=== PATIENT | female | born 1990 | race Caucasian/White ===

== ENCOUNTER → 2017-01-29 | Outpatient (CLI) | payer BC, OTHER ==
[~2017-01-29] MED LIST: BCPILLS PO; GADAVIST IV PRN
--- NOTE | 2017-01-29 14:06 | DIAGNOSTIC IMAGING REPORT ---
Brain MRI WITH AND WITHOUT CONTRAST HISTORY: Demyelinating disorder MS TECHNIQUE: Multiplanar multisequence MRI of the brain was performed both before and after the intravenous administration of contrast. COMPARISON STUDY: 08/07/2016 FINDINGS: There are no areas of restricted diffusion to suggest acute infarction. The midline structures are intact. The paranasal sinuses are clear. The mastoid air cells are clear. The ventricles and sulci are within normal limits for age. There is no mass, hematoma, midline shift. The major vascular flow-voids at the skull base are well maintained. Postcontrast sequences show no areas of abnormal enhancement. There are several very small punctate foci of increased signal within the frontal regions bilaterally. These are unchanged compared to the prior study. IMPRESSION: No acute intracranial abnormality. Several faint nonspecific foci of increased signal within the frontal lobes unchanged compared to the prior exam. Electronically signed by: Erick Tomas M.D. 01/29/2017 2:04 PM Dictated Date/Time: 01/29/2017 1:54 PM
--- NOTE | 2017-01-29 14:37 | DIAGNOSTIC IMAGING REPORT ---
MRI OF THE CERVICAL SPINE COMBO CLINICAL HISTORY: Multiple sclerosis. COMPARISON STUDY: MRI of the cervical spine dated 08/07/2016 and 07/27/2014. TECHNIQUE: MRI of the cervical spine is performed utilizing various T1 and T2 sequences in the axial and sagittal planes. Contrast enhanced sequences were acquired following the IV administration of 6 cc of Gadavist. FINDINGS: CERVICAL SPINE: Vertebral body height and alignment are maintained throughout the cervical spine. Normal marrow signal intensity is preserved throughout the visualized bony structures. There is straightening of cervical lordosis with mild reversal centered at C5. The atlantodental articulation appears preserved. The spinous processes are intact. No destructive bony lesion is seen. INTERVERTEBRAL DISCS: Normal in height and signal intensity. SPINAL CORD: Again seen is a T2 hyperintense lesion in the posterior lower cervical cord at the level of C6-C7. This measures up to 6 mm in craniocaudal length, and is unchanged dating back to 07/27/2014. This does not show is contrast enhancement. A new lesion is suspected within the left aspect of the cord at the level of C6-C7 on sagittal STIR image #10. This measures 5 mm. This was not clearly seen previously and there is likely subtle postcontrast enhancement within this lesion. C2-C3: Unremarkable. C3-C4: Unremarkable. C4-C5: There is a tiny posterior disc osteophyte complex of no consequence. The neural foramina are patent. C5-C6: A tiny posterior disc osteophyte complex is of no consequence. The neural foramina are patent. C6-C7: Unremarkable. C7-T1: Unremarkable. SOFT TISSUES: The prevertebral and paraspinous soft tissues are within normal limits. BRAIN PARENCHYMA: The partially visualized brain parenchyma at the skull base is grossly normal. IMPRESSION: 1. There is unchanged appearance of a 6 mm T2 hyperintense lesion within the posterior cervical cord at C6-C7 as compared to prior studies. 2. Suspect a new 5 mm lesion within the left aspect of the cervical cord at C6-C7. This was not clearly seen previously and there is likely subtle postcontrast enhancement within this lesion. 3. There is no disc herniation, central canal stenosis, or neuroforaminal narrowing seen throughout the cervical spine. Electronically signed by: Juan Carlos Gamino M.D. 01/29/2017 2:36 PM Dictated Date/Time: 01/29/2017 2:14 PM
[2017-01-29 16:44] LABS: BASO % 0.4 %; BASO ABS # 0.04 K/uL (0-0.2); COMPLETE YES; EOS % 0.8 %; HEMATOCRIT 37.9 % (37-47); IG% 0.4 %; MEAN CELL VOLUME 89.6 fL (80-100); MEAN CORPUSCULAR HEMOGLOBIN 28.6 pg (25-34); MEAN CORPUSCULAR HGB CONC 31.9 g/dl (32-36); MEAN PLATELET VOLUME 10.4 fL (7.4-10.4); MONO % 5.9 %; NEUT % 66.5 %; PLATELET COUNT 362 K/uL (130-400); RED BLOOD COUNT 4.23 M/uL (4.2-5.4); WHITE BLOOD COUNT 10.01 K/uL (4.8-10.8)
[2017-01-29 17:45] LABS: ALT/SGPT 21 U/L (12-78); BLOOD UREA NITROGEN 11 mg/dl (7-18); BUN/CREATININE RATIO 15.9 (10-20); CALCIUM 8.7 mg/dl (8.5-10.1); CARBON DIOXIDE 25 mmol/L (21-32); CHLORIDE 108 mmol/L (98-107); CREATININE 0.66 mg/dl (0.60-1.20); GLUCOSE 84 mg/dl (70-99); POTASSIUM 3.7 mmol/L (3.5-5.1); SODIUM 141 mmol/L (136-145)
[2017-01-29 17:47] LABS: ALB/GLOB RATIO 0.8 (0.9-2); ALKALINE PHOSPHATASE 50 U/L (45-117); AST/SGOT 13 U/L (15-37)
[2017-02-05 01:44] LABS: JCV ANTIBODY POSITIVE; VARICELLA ZOS VIR IGM AB <=0.90 (<=0.90)
== END | disposition home or self-care (01) ==
LOC: C.MRIBC 11:55
PROVIDERS: ATTEND Psychiatry & Neurology Neurology
DX: G35 Multiple sclerosis (principal)

== ENCOUNTER → 2017-03-30 | Outpatient (CLI) | payer BC, OTHER ==
[~2017-03-30] MED LIST changes: -GADAVIST IV PRN
== END | disposition home or self-care (01) ==
LOC: C.CPL 16:35
PROVIDERS: ATTEND Psychiatry & Neurology Neurology
DX: G35 Multiple sclerosis (principal)

== ENCOUNTER → 2017-07-28 | Outpatient (CLI) | payer BC, OTHER ==
[~2017-07-28] MED LIST changes: +GADAVIST IV PRN
--- NOTE | 2017-07-28 10:33 | DIAGNOSTIC IMAGING REPORT ---
MRI CERVICAL SPINE COMBO CLINICAL HISTORY: Multiple sclerosis TECHNIQUE: Sagittal and axial T1, T2 and STIR images were obtained. Imaging was obtained before and after the administration of 6 cc of intravenous Gadavist. COMPARISON STUDY: January 29, 2017 There are no suspicious areas of marrow replacement. There is a 6.6 mm focus of increased T2 signal within the posterior cervical cord at the C6-7 level. There is no evidence for post gadolinium enhancement. C2-3: There is no evidence of disc bulge or focal herniation. There is no spinal or foraminal stenosis. C3-4: There is no evidence of disc bulge or focal herniation. There is no spinal or foraminal stenosis. C4-5: There are no disc bulges or focal herniations. There is no spinal or foraminal stenosis. C5-6 :There is a mild circumferential disc bulge. There is no significant spinal or foraminal stenosis C6-7: There is no evidence of disc bulge or focal herniation. There is no evidence of spinal or foraminal stenosis. C7-T1: There is no evidence of disc bulge or focal herniation. There is no evidence of spinal or foraminal stenosis. IMPRESSION: 1. Stable (x6 years) 6.6 mm focus of increased T2 signal within the posterior cervical cord at the C6-7 level. No evidence of pathologic enhancement. No additional lesions identified. 2. Minor C5-6 disc bulge. No evidence of spinal or foraminal stenosis. Electronically signed by: Sotero Martin M.D. 07/28/2017 10:31 AM Dictated Date/Time: 07/28/2017 10:27 AM
--- NOTE | 2017-07-28 11:25 | DIAGNOSTIC IMAGING REPORT ---
BRAIN COMBO FOR MS CLINICAL HISTORY: Multiple sclerosis. COMPARISON STUDY: MRI of the brain January 29, 2017. TECHNIQUE: Utilizing a 1.5 Yisel magnet, multiplanar, multiecho imaging of the brain was performed pre and postcontrast administration according to the multiple sclerosis protocol. Injection of 6 cc of Gadavist IV was uneventful. FINDINGS: There are no areas of restricted diffusion. No acute intracranial hemorrhage, midline shift or mass effect is present. Brain volume is normal. Ventricular system is normal. Basilar cisterns are patent. There are no extra axial collections. Flow-voids for the major intracranial vessels are present. A few small linear foci of subcortical white matter T2 hyperintensity within the right frontal lobe are unchanged since earlier exams dating back to September 11, 2011. No new areas of signal abnormality are present. There is no parenchymal enhancement to suggest active demyelination. Orbits are unremarkable. Calvarial signal is maintained. Flow-voids for the major intracranial vessels are present. IMPRESSION: 1. No change in a few small subcortical white matter T2 hyperintense foci since earlier exams dating back to September 11, 2011. No new areas of signal abnormality. No evidence for active demyelination. 2. No acute intracranial findings. Electronically signed by: Chris Rojas M.D. 07/28/2017 11:23 AM Dictated Date/Time: 07/28/2017 10:57 AM
== END | disposition home or self-care (01) ==
LOC: C.MRIBC 08:40
PROVIDERS: ATTEND Psychiatry & Neurology Neurology
DX: G35 Multiple sclerosis (principal)

== ENCOUNTER → 2017-09-02 | Outpatient (CLI) | payer BC, OTHER ==
[~2017-09-02] MED LIST changes: -GADAVIST IV PRN
[2017-09-02 16:41] LABS: BASO % 0.1 %; BASO ABS # 0.01 K/uL (0-0.2); EOS % 0.6 %; EOS ABS # 0.04 K/uL (0-0.5); HEMATOCRIT 38.9 % (37-47); HEMOGLOBIN 12.8 g/dL (12.0-16.0); IG# 0.06 K/uL (0.00-0.02); LYMPH % 5.1 %; LYMPH ABS # 0.36 K/uL (1.2-3.4); MEAN CORPUSCULAR HEMOGLOBIN 29.6 pg (25-34); MEAN CORPUSCULAR HGB CONC 32.9 g/dl (32-36); MEAN PLATELET VOLUME 10.5 fL (7.4-10.4); MONO % 6.8 %; MONO ABS # 0.48 K/uL (0.11-0.59); NEUT % 86.6 %; NEUT ABS # 6.13 K/uL (1.4-6.5); PLATELET COUNT 281 K/uL (130-400); RED CELL DISTRIBUTION WIDTH CV 13.4 % (11.5-14.5); RED CELL DISTRIBUTION WIDTH SD 44.6 fL (36.4-46.3); WHITE BLOOD COUNT 7.08 K/uL (4.8-10.8)
[2017-09-02 17:06] LABS: ALBUMIN 3.3 gm/dl (3.4-5.0); ALT/SGPT 26 U/L (12-78); AST/SGOT 14 U/L (15-37); BLOOD UREA NITROGEN 14 mg/dl (7-18); CALCIUM 8.8 mg/dl (8.5-10.1); CARBON DIOXIDE 25 mmol/L (21-32); CREATININE 0.67 mg/dl (0.60-1.20); GLUCOSE 111 mg/dl (70-99); POTASSIUM 3.8 mmol/L (3.5-5.1); SODIUM 137 mmol/L (136-145)
[2017-09-02 17:09] LABS: ALKALINE PHOSPHATASE 44 U/L (45-117); TOTAL PROTEIN 7.3 gm/dl (6.4-8.2)
== END | disposition home health service (06) ==
LOC: C.LAB 16:20
PROVIDERS: ATTEND Psychiatry & Neurology Neurology
DX: G35 Multiple sclerosis (principal)

== ENCOUNTER 2020-08-31 08:59 | Inpatient (IN) ==
[2020-08-31] MEDS ORDERED: SODIUM CHLORIDE 0.9% 500 ML IV STA (09:17)
[2020-08-31] MEDS ORDERED: DEXAMETHASONE SOD INJ 10 MG/ML VIAL IV ONE (09:17)
--- NOTE | 2020-08-31 09:28 | Emergency Department Note ---
Impression & Plan Multifocal pneumonia, COVID-19 virus infection, Sepsis ED Provider Note CHIEF COMPLAINT: Shortness of breath, + COVID-19 HISTORY OF PRESENTING ILLNESS: This is a 30-year-old female with past medical history significant for multiple sclerosis who presents to the emergency department by private vehicle with complaint of increasing shortness of breath over the past few days. Patient states that she tested positive for COVID-19 on 08/15, she initially felt better after being treated with some steroids, but started to feel worse again about 4 to 5 days ago. She was seen in the emergency department on 08/28 at which time they did recommend possible admission, however the patient requested to go home and she was felt stable to do so at that time. She was started on azithromycin, cefdinir, prednisone, and was given an albuterol inhaler. She states this morning she was feeling more short of breath when she woke up and she checked her pulse ox and it was 87%. She also notes continued persistent fevers ranging 102-103, she last took Motrin around midnight and Tylenol around 6:30 AM today. She denies chest pain, but notes discomfort in her chest and tightness with coughing. She denies any hemoptysis. She denies any syncope. She denies abdominal pain or back pain. She states t hat she has been using the albuterol inhaler, but this has not really helped her symptoms. REVIEW OF SYSTEMS: A complete 10 point review of systems was reviewed with the patient with pertinent positives and negatives as per history of present illness. All else were negative. PAST MEDICAL HISTORY: Multiple sclerosis SOCIAL HISTORY: Lives at home, she is a former smoker ALLERGIES: Reviewed in chart and with the patient PHYSICAL EXAM: CONSTITUTIONAL: Pleasant and cooperative. Appears ill and uncomfortable, dehydrated. HEENT: Normocephalic, atraumatic. PERRL, EOMI. Pharynx normal. Tacky mucous membranes. NECK: Supple, full active range of motion without discomfort. RESPIRATORY: Coarse rhonchi bilaterally, no wheezing or stridor. Mildly labored breathing with tachypnea and accessory muscle use. Frequent coughing spells. Equal expansion bilaterally. CARDIOVASCULAR: Tachycardic rate, regular rhythm with no murmurs, rubs or gallops. Normal peripheral perfusion. No edema. GASTROINTESTINAL: Soft, nontender, nondistended. No palpable masses or HSM. Bowel sounds present in all quadrants. MUSCULOSKELETAL: Full range of motion of all joints without discomfort. INTEGUMENTARY: No rash or other significant dermatologic conditions noted. NEUROLOGIC: Alert and oriented X 4 with normal affect. Normal strength and sensation in all 4 extremities. Normal speech. Normal gait observed. ED COURSE AND MEDICAL DECISION MAKING: CC: Patient presenting with complaint of shortness of breath, + COVID-19 DIFFERENTIAL DIAGNOSIS: Includes, but not limited to COVID-19 pneumonia, orchitis, bacterial pneumonia, sepsis/bacteremia, hypoxia, pulmonary embolism, pneumothorax, pleural effusion, pulmonary edema, among others. INTERPRETATION OF LABS: Leukocytosis with left shift, no anemia, normal platelets, no significant electrolyte abnormalities, normal renal function, normal liver enzymes. Coagulation factors within normal limits. Procalcitonin is not significantly elevated. Lactate is slightly elevated. Serum negative. Urinalysis negative. MRSA nasal screen negative. IMAGING: XR chest 1V portable HISTORY: 30 years-old Female Dyspnea, + COVID acute shortness of breath. COVID Positive. COMPARISON: Chest radiograph 08/28/2020 TECHNIQUE: Portable AP view of the chest FINDINGS: Cardiac silhouette is normal in size. No pneumothorax. Progressively worsened bilateral airspace opacities. No pleural effusion. Bones appear grossly intact. IMPRESSION: Progressively worsened bilateral airspace opacities compatible with multifocal pneumonia. ----- CT angio chest PE protocol CT DOSE: 297.31 mGy.cm HISTORY: 30 years-old Female with Dyspnea, + covid, OCP. Acute shortness of breath. COVID Positive. TECHNIQUE: Multiple CTA images of the chest were obtained after the intravenous administration of 120 ml Optiray 320. Coronal and sagittal MIPS were obtained from the axial data set and were submitted for review. All measurements were obtained according to NASCET criteria. A dose lowering technique was utilized adhering to the principles of ALARA. COMPARISON: Chest radiograph of same day and also 08/28/2020 FINDINGS: CTA: The heart is normal in size without pericardial effusion. There is no thoracic aortic aneurysm or dissection. Patency of the imaged great vessels. The pulmonary arterial tree is opacified to the level of the subsegmental branches and demonstrates no filling defects to suggest thromboembolic disease. CT CHEST: Unremarkable thyroid. Mild residual thymic tissue of the anterior mediastinum. Prominent mediastinal and hilar lymph nodes measuring up to 8-9 mm are likely reactive. Small pleural effusions. No pneumothorax. Low and patchy multilobar distribution of bilateral airspace opacities are noted, progressively worsened from 08/29/2020. Intermixed groundglass densities of the lung bases. Central airways are patent. No acute process of the imaged upper abdomen. The breast parenchyma and soft tissues appear unremarkable. Bones appear intact. IMPRESSION: 1. No pulmonary emboli. 2. Extensive bilateral alveolar opacities have progressively worsened from 08/28/2020 compatible with multifocal pneumonia. 3. Small pleural effusions. EKG: Shows sinus tachycardia with rate of 111 bpm, normal intervals, no ST elevation or depression, no ectopy, no significant change when compared to previous EKG from 08/28/2020 by my interpretation. MEDICATION RECONCILIATION: I attest that I have personally reviewed the patient's current medication list. INITIAL VITAL SIGNS REVIEW: I reviewed the patient's initial vital signs and interpret them as follows: T: Afebrile; BP: Normotensive; HR: Tachycardic; RR: Within normal limits; Pulse Ox: Within normal limits on room air. MDM SUMMARY: Patient was evaluated at bedside, history and physical exam performed. Patient was evaluated under full airborne and contact precautions. Patient is alert and oriented, no acute distress, resting calmly in stretcher. She is ill-appearing, but in no acute distress. Currently afebrile. Coarse rhonchi bilaterally throughout, she is mildly tachypneic at time, 22 to 25 breaths/min. Cardiac monitoring: An order was placed for continuous cardiac monitoring. The monitor shows a rate of 122 bpm with sinus tachycardia rhythm. EKG was reviewed at bedside which also shows sinus tachycardia. Orders were placed for labs cultures x2 and lactate, UA, 500 mL IV fluid bolus, 6 mg IV Decadron, chest x-ray and CTA of the chest to evaluate for shortness of breath. Patient discussed with Dr. Prasad, who agrees with my assessment, plan, and disposition. Labs and imaging reviewed as above, labs notable for leukocytosis and a mildly elevated lactate. She is not . Patient did develop a fever of 39.0, she was given 600 mg p.o. Motrin. Chest x-ray concerning for worsening of multifocal pneumonia. Patient was given IV cefepime for broad coverage, possible sepsis and concern for superimposed bacterial pneumonia with Covid pneumonia. MRSA nasal swab was performed to see if the patient is colonized, as she does work in healthcare. Will hold off on vancomycin for now. CTA of the chest shows diffuse multifocal pneumonia with small pleural effusions and no evidence for PE. I did feel that the patient warranted hospital admission, given her hypoxia and continued worsening of pneumonia as well as possible sepsis concerns. [facility] patient for [facility]. Patient reassessed multiple times throughout ED stay, she has remained hemodynamically stable, tachycardia is downtrending and she has defervesced appropriately with Motrin and Tylenol. She was updated on all results and plan for admission, all questions were answered at this time and she was agreeable to this plan. The patient was stable at time of admission. The chart was completed utilizing [employer] Speech voice recognition software. Grammatical errors, random word insertions, pronoun errors, and incomplete sentences are an occasional consequence of this system due to software limitat ions, ambient noise, and hardware issues. Any formal questions or concerns about the content, text, or information contained within the body of this dictation should be directly addressed to the nurse practitioner for clarification. Past Med/Surg History Medical History (Updated 08/31/20 @ 17:06 by JOSÉ MIGUEL Liao) Dizziness Fatigue Hypokalemia Multiple sclerosis Surgical History History of dental surgery Family History (Updated 08/31/20 @ 13:05 by Elizabeth Lay PA-C) Family/Other Lupus (systemic lupus erythematosus) Other Stroke Social History Smoking Status: Former smoker Hx Alcohol Use: Yes Alcohol type: beer and wine Hx Substance Use: No Preferred Language: Bulgarian Communication Ability: Effective Bail Attacher Required: No Beliefs That Will Affect Care: None Current Living Situation: Significant Other Other Information That Helps Us Care for You: No Feels Safe at Home: Yes Assistive Devices: None Allergies Allergies Allergy/AdvReac Type Severity Reaction Status Date / Time glatiramer (copolymer 1) Allergy Severe Hives and Verified 08/31/20 09:21 [From Copaxone] shortness of breath Home Meds Home Medications Medication Instructions Recorded Confirmed cholecalciferol (vitamin D3) 125 5,000 units PO DAILY tab 04/06/19 08/31/20 mcg (5,000 unit) tablet benzonatate 100 mg PO TID PRN 08/28/20 08/31/20 drospirenone-ethinyl estradiol 1 tab PO DAILY 08/28/20 08/31/20 ascorbic acid (vitamin C) 500 mg PO DAILY 08/31/20 08/31/20 zinc acetate 50 mg PO DAILY 08/31/20 08/31/20 Previous Rx's Medication Instructions Recorded ocrelizumab 30 mg/mL intravenous 600 mg IV .COMPLEX 360 Days #2 ml 10/20/19 solution armodafinil 200 mg tablet 200 mg PO DAILY 30 Days #30 tab 07/01/20 albuterol sulfate [Proventil HFA] 2 inh INHALATION Q6H #18 g 08/28/20 azithromycin [Zithromax Z-Lm] See Rx Instructions .ROUTE 08/28/20 .COMPLEX #6 tab cefdinir 300 mg PO BID 7 Days #20 cap 08/28/20 prednisone 20 mg PO BID #10 tab 08/28/20 Results & Data (ED) Vital Signs Vital Signs - 24 hr 08/31/20 09:02 08/31/20 09:50 08/31/20 09:52 Temperature 36.3 C L 37.4 C Temperature Source Temporal Artery Scan Oral Pulse Rate 130 H Pulse Rate from SpO2 Sensor Respiratory Rate 22 32 H Respiratory Effort / Characteristics Spontaneous Respiratory Pattern Blood Pressure 124/78 Blood Pressure Mean 93 Blood Pressure Position Sitting Pulse Oximetry 95 90 Oxygen Delivery Method Room Air Room Air Nasal Cannula Oxygen Flow Rate Sepsis Recent Fever Within 48 Hours Yes Sepsis New/Unexplained Change in Mental Status No Sepsis Action Taken by Nursing Physician Notified Oxygen Flow Rate - Titration 2 Pulse Oximetry Post Tiitration 98 08/31/20 10:06 08/31/20 10:07 08/31/20 10:09 Temperature Temperature Source Pulse Rate 125 H 112 H Pulse Rate from SpO2 Sensor 113 H Respiratory Rate 29 H 50 H Respiratory Effort / Characteristics Respiratory Pattern Rapid/Shallow Tachypnea Blood Pressure 115/80 Blood Pressure Mean 91 Blood Pressure Position Pulse Oximetry 100 98 90 Oxygen Delivery Method Room Air Nasal Cannula Oxygen Flow Rate Sepsis Recent Fever Within 48 Hours Sepsis New/Unexplained Change in Mental Status Sepsis Action Taken by Nursing Oxygen Flow Rate - Titration 2 Pulse Oximetry Post Tiitration 100 08/31/20 10:10 08/31/20 10:20 08/31/20 10:30 Temperature Temperature Source Pulse Rate 108 H 119 H 106 H Pulse Rate from SpO2 Sensor 108 H 117 H 108 H Respiratory Rate 42 H 28 H 31 H Respiratory Effort / Characteristics Respiratory Pattern Blood Pressure 112/76 Blood Pressure Mean 89 Blood Pressure Position Pulse Oximetry 100 95 98 Oxygen Delivery Method Oxygen Flow Rate Sepsis Recent Fever Within 48 Hours Sepsis New/Unexplained Change in Mental Status Sepsis Action Taken by Nursing Oxygen Flow Rate - Titration Pulse Oximetry Post Tiitration 08/31/20 10:40 08/31/20 10:50 08/31/20 11:00 Temperature Temperature Source Pulse Rate 102 H 108 H 109 H Pulse Rate from SpO2 Sensor 104 H 108 H 108 H Respiratory Rate 38 H 43 H 42 H Respiratory Effort / Characteristics Respiratory Pattern Blood Pressure 114/74 Blood Pressure Mean 90 Blood Pressure Position Pulse Oximetry 98 98 99 Oxygen Delivery Method Oxygen Flow Rate Sepsis Recent Fever Within 48 Hours Sepsis New/Unexplained Change in Mental Status Sepsis Action Taken by Nursing Oxygen Flow Rate - Titration Pulse Oximetry Post Tiitration 08/31/20 11:08 08/31/20 11:10 08/31/20 11:22 Temperature 39.0 C H Temperature Source Oral Pulse Rate 114 H 144 H Pulse Rate from SpO2 Sensor Respiratory Rate 38 H 27 H Respiratory Effort / Characteristics Respiratory Pattern Blood Pressure Blood Pressure Mean Blood Pressure Position Pulse Oximetry 95 Oxygen Delivery Method Nasal Cannula Oxygen Flow Rate 2 Sepsis Recent Fever Within 48 Hours Sepsis New/Unexplained Change in Mental Status Sepsis Action Taken by Nursing Oxygen Flow Rate - Titration Pulse Oximetry Post Tiitration 08/31/20 11:30 08/31/20 11:40 08/31/20 11:50 Temperature Temperature Source Pulse Rate 120 H 115 H 114 H Pulse Rate from SpO2 Sensor 122 H 115 H 115 H Respiratory Rate 29 H 32 H 47 H Respiratory Effort / Characteristics Respiratory Pattern Blood Pressure 116/86 Blood Pressure Mean 98 Blood Pressure Position Pulse Oximetry 99 100 99 Oxygen Delivery Method Oxygen Flow Rate Sepsis Recent Fever Within 48 Hours Sepsis New/Unexplained Change in Mental Status Sepsis Action Taken by Nursing Oxygen Flow Rate - Titration Pulse Oximetry Post Tiitration 08/31/20 12:00 08/31/20 12:10 08/31/20 12:20 Temperature Temperature Source Pulse Rate 115 H 113 H 93 H Pulse Rate from SpO2 Sensor 116 H 114 H 95 H Respiratory Rate 26 H 44 H 35 H Respiratory Effort / Characteristics Respiratory Pattern Blood Pressure 114/77 Blood Pressure Mean 91 Blood Pressure Position Pulse Oximetry 98 97 97 Oxygen Delivery Method Oxygen Flow Rate Sepsis Recent Fever Within 48 Hours Sepsis New/Unexplained Change in Mental Status Sepsis Action Taken by Nursing Oxygen Flow Rate - Titration Pulse Oximetry Post Tiitration 08/31/20 12:26 08/31/20 12:30 Temperature 37.8 C H Temperature Source Oral Pulse Rate 116 H Pulse Rate from SpO2 Sensor 116 H Respiratory Rate 29 H Respiratory Effort / Characteristics Respiratory Pattern Blood Pressure 118/81 Blood Pressure Mean 90 Blood Pressure Position Pulse Oximetry 97 Oxygen Delivery Method Oxygen Flow Rate Sepsis Recent Fever Within 48 Hours Sepsis New/Unexplained Change in Mental Status Sepsis Action Taken by Nursing Oxygen Flow Rate - Titration Pulse Oximetry Post Tiitration Laboratory Data Result diagrams: 08/31/20 10:08 08/31/20 10:08 Lab Results 08/31/20 08/31/20 08/31/20 Range/Units 10:08 10:08 10:08 WBC 17.41 H (4.8-10.8) K/uL RBC 4.25 (4.2-5.4) M/uL Hgb 12.3 (12.0-16.0) g/dL Hct 37.3 (37-47) % MCV 87.8 (80-100) fL MCH 28.9 (25-34) pg MCHC 33.0 (32-36) g/dL RDW Std Deviation 42.0 (36.4-46.3) fL RDW Coeff of [place] 13.0 (11.5-14.5) % Plt Count 405 H (130-400) K/uL MPV 9.3 (7.4-10.4) fL Immature Gran % (Auto) 1.1 % Neut % (Auto) 93.6 % Lymph % (Auto) 3.6 % [place] % (Auto) 1.6 % Eos % (Auto) 0.0 % Baso % (Auto) 0.1 % Neut # (Auto) 16.31 H (1.4-6.5) K/uL Lymph # (Auto) 0.63 L (1.2-3.4) K/uL [place] # (Auto) 0.27 (0.11-0.59) K/uL Eos # (Auto) 0.00 (0-0.5) K/uL Baso # (Auto) 0.01 (0-0.2) K/uL Immature Gran # (Auto) 0.19 H (0.00-0.02) K/uL PT 10.3 (9.0-12.0) Seconds INR 1.0 (0.9-1.1) APTT 28.5 (21.0-31.0) Seconds PTT Ratio 1.0 Sodium 138 (136-145) mmol/L Potassium 3.4 L (3.5-5.1) mmol/L Chloride 104 (98-107) mmol/L Carbon Dioxide 26 (21-32) mmol/L Anion Gap 8.0 (3-11) BUN 4 L (7-18) mg/dl Creatinine 0.62 (0.6-1.2) mg/dl Est Cr Clr Drug Dosing 118.6 ml/min Est GFR ( Amer) 142.2 Est GFR (Non-Af Amer) 122.7 BUN/Creatinine Ratio 6.4 L (10-20) Glucose 103 H (70-99) mg/dl Lactate (0.4-2.0) mmol/L Calcium 9.3 (8.5-10.1) mg/dl Magnesium 1.9 (1.8-2.4) mg/dl Total Bilirubin 0.3 (0.2-1) mg/dl AST 35 (15-37) U/L ALT 67 (12-78) U/L Alkaline Phosphatase 109 (45-117) U/L Troponin I < 0.015 (0-0.045) ng/ml Total Protein 8.2 (6.4-8.2) gm/dl Albumin 2.9 L (3.4-5.0) gm/dl Globulin 5.3 H (2.5-4.0) gm/dl Albumin/Globulin Ratio 0.6 L (0.9-2) Procalcitonin (0-0.5) ng/ml HCG, Qual (Negative) Nasal Screen MRSA (PCR) (Negative) 08/31/20 08/31/20 08/31/20 Range/Units 10:08 10:08 11:50 WBC (4.8-10.8) K/uL RBC (4.2-5.4) M/uL Hgb (12.0-16.0) g/dL Hct (37-47) % MCV (80-100) fL MCH (25-34) pg MCHC (32-36) g/dL RDW Std Deviation (36.4-46.3) fL RDW Coeff of [place] (11.5-14.5) % Plt Count (130-400) K/uL MPV (7.4-10.4) fL Immature Gran % (Auto) % Neut % (Auto) % Lymph % (Auto) % [place] % (Auto) % Eos % (Auto) % Baso % (Auto) % Neut # (Auto) (1.4-6.5) K/uL Lymph # (Auto) (1.2-3.4) K/uL [place] # (Auto) (0.11-0.59) K/uL Eos # (Auto) (0-0.5) K/uL Baso # (Auto) (0-0.2) K/uL Immature Gran # (Auto) (0.00-0.02) K/uL PT (9.0-12.0) Seconds INR (0.9-1.1) APTT (21.0-31.0) Seconds PTT Ratio Sodium (136-145) mmol/L Potassium (3.5-5.1) mmol/L Chloride (98-107) mmol/L Carbon Dioxide (21-32) mmol/L Anion Gap (3-11) BUN (7-18) mg/dl Creatinine (0.6-1.2) mg/dl Est Cr Clr Drug Dosing ml/min Est GFR ( Amer) Est GFR (Non-Af Amer) BUN/Creatinine Ratio (10-20) Glucose (70-99) mg/dl Lactate 2.3 H* (0.4-2.0) mmol/L Calcium (8.5-10.1) mg/dl Magnesium (1.8-2.4) mg/dl Total Bilirubin (0.2-1) mg/dl AST (15-37) U/L ALT (12-78) U/L Alkaline Phosphatase (45-117) U/L Troponin I (0-0.045) ng/ml Total Protein (6.4-8.2) gm/dl Albumin (3.4-5.0) gm/dl Globulin (2.5-4.0) gm/dl Albumin/Globulin Ratio (0.9-2) Procalcitonin 0.06 (0-0.5) ng/ml HCG, Qual Negative (Negative) Nasal Screen MRSA (PCR) (Negative) 08/31/20 Range/Units 12:20 WBC (4.8-10.8) K/uL RBC (4.2-5.4) M/uL Hgb (12.0-16.0) g/dL Hct (37-47) % MCV (80-100) fL MCH (25-34) pg MCHC (32-36) g/dL RDW Std Deviation (36.4-46.3) fL RDW Coeff of [place] (11.5-14.5) % Plt Count (130-400) K/uL MPV (7.4-10.4) fL Immature Gran % (Auto) % Neut % (Auto) % Lymph % (Auto) % [place] % (Auto) % Eos % (Auto) % Baso % (Auto) % Neut # (Auto) (1.4-6.5) K/uL Lymph # (Auto) (1.2-3.4) K/uL [place] # (Auto) (0.11-0.59) K/uL Eos # (Auto) (0-0.5) K/uL Baso # (Auto) (0-0.2) K/uL Immature Gran # (Auto) (0.00-0.02) K/uL PT (9.0-12.0) Seconds INR (0.9-1.1) APTT (21.0-31.0) Seconds PTT Ratio Sodium (136-145) mmol/L Potassium (3.5-5.1) mmol/L Chloride (98-107) mmol/L Carbon Dioxide (21-32) mmol/L Anion Gap (3-11) BUN (7-18) mg/dl Creatinine (0.6-1.2) mg/dl Est Cr Clr Drug Dosing ml/min Est GFR ( Amer) Est GFR (Non-Af Amer) BUN/Creatinine Ratio (10-20) Glucose (70-99) mg/dl Lactate (0.4-2.0) mmol/L Calcium (8.5-10.1) mg/dl Magnesium (1.8-2.4) mg/dl Total Bilirubin (0.2-1) mg/dl AST (15-37) U/L ALT (12-78) U/L Alkaline Phosphatase (45-117) U/L Troponin I (0-0.045) ng/ml Total Protein (6.4-8.2) gm/dl Albumin (3.4-5.0) gm/dl Globulin (2.5-4.0) gm/dl Albumin/Globulin Ratio (0.9-2) Procalcitonin (0-0.5) ng/ml HCG, Qual (Negative) Nasal Screen MRSA (PCR) Negative (Negative) Administered Medications Guaifenesin/Dextromethorphan (Guaifenesin/Dextrom Syrup 200mg/20mg 10ml Udc) 10 ml PO Q8 JEFFERSON Stop: 09/30/20 14:59 Last Admin: 08/31/20 16:10 Dose: 10 ml Documented by: [id number] Azithromycin 500 mg/ Dextrose 255 mls @ 125 mls/hr IV Q24H JEFFERSON; Protocol Stop: 09/05/20 14:59 Last Admin: 08/31/20 16:11 Dose: 125 mls/hr Documented by: [id number] Miscellaneous (Patient's Own Bcps: Order Awaiting Action) 1 ea N/A QS JEFFERSON Stop: 09/30/20 15:59 Last Admin: 08/31/20 16:12 Dose: Not Given Documented by: [id number] Discontinued Medications Acetaminophen (Acetaminophen 325 Mg Tab) 650 mg PO NOW STA Stop: 08/31/20 12:28 Last Admin: 08/31/20 12:33 Dose: 650 mg Documented by: [id number] Dexamethasone (Dexamethasone Sod Inj 10 Mg/Ml Vial) 6 mg IV NOW ONE Stop: 08/31/20 09:18 Last Admin: 08/31/20 10:08 Dose: 6 mg Documented by: [id number] Sodium Chloride (Nss) 500 mls @ 500 mls/hr IV .Q1H STA Stop: 08/31/20 10:16 Last Infusion: 08/31/20 11:10 Dose: 0 mls/hr Documented by: [id number] Admin: 08/31/20 10:08 Dose: 500 mls/hr Documented by: [id number] Cefepime HCl (Maxipime) 2,000 mg in 20 mls @ 5 mls/min IV NOW STA; Protocol Stop: 08/31/20 10:58 Last Admin: 08/31/20 12:17 Dose: 5 mls/min Documented by: [id number] Sodium Chloride (Nss 1000ml) 500 mls @ 999 mls/hr IV .Q31M ONE Stop: 08/31/20 13:53 Last Infusion: 08/31/20 16:20 Dose: 0 mls/hr Documented by: [id number] Admin: 08/31/20 14:51 Dose: 999 mls/hr Documented by: [id number] Remdesivir 200 mg/ Sodium (Chloride) 250 mls @ 125 mls/hr IV ONE ONE; Protocol Stop: 08/31/20 16:59 Last Admin: 08/31/20 16:11 Dose: 125 mls/hr Documented by: [id number] Ibuprofen (Ibuprofen 600 Mg Tab) 600 mg PO NOW STA Stop: 08/31/20 11:08 Last Admin: 08/31/20 11:31 Dose: 600 mg Documented by: [id number] Ioversol (Optiray 320 125ml) 120 ml IV ONCE ONE Stop: 08/31/20 09:35 Last Admin: 08/31/20 09:34 Dose: 120 ml Documented by: [id number] Potassium Chloride (Potassium Chloride Crtab 20 Meq Tabcr) 40 meq PO NOW STA Stop: 08/31/20 12:40 Last Admin: 08/31/20 13:56 Dose: 40 meq Documented by: [id number] Discharge Plan Visit Data Chief Complaint: Shortness of Breath/Dyspnea Stated Complaint: COVID +,SOB ED Provider: Jose Luis Prasad ED Midlevel Provider: Bryanna Acosta Discharge Problem: Multifocal pneumonia, COVID-19 virus infection, Sepsis Patient Disposition: Admitted As Inpatient Discharge Instructions Interventions: ED Discharge Assessment Last Done: 08/31/20 13:59 Discharge Problem: Sepsis Qualifiers: Sepsis type: sepsis due to unspecified organism Sepsis acute organ dysfunction status: unspecified Qualified Code(s): A41.9 - Sepsis, unspecified organism
[2020-08-31] MEDS ORDERED: OPTIRAY 320 125ml IV ONE (09:34)
[2020-08-31 10:14] LABS: Basophils # (auto) 0.01 K/uL (0-0.2); Basophils % (auto) 0.1 %; Hematocrit (blood only) 37.3 % (37-47); Hemoglobin 12.3 g/dL (12.0-16.0); Immature Granulocytes # (auto) 0.19 K/uL (0.00-0.02); Immature Granulocytes % (auto) 1.1 %; Lymphocytes # (auto) 0.63 K/uL (1.2-3.4); Lymphocytes % (auto) 3.6 %; Mean Corpuscular Hemoglobin 28.9 pg (25-34); Mean Corpuscular Volume 87.8 fL (80-100); Mean Platelet Volume 9.3 fL (7.4-10.4); Monocytes # (auto) 0.27 K/uL (0.11-0.59); Monocytes % (auto) 1.6 %; Neutrophils # (auto) 16.31 K/uL (1.4-6.5); Neutrophils % (auto) 93.6 %; Platelet Count 405 K/uL (130-400); Red Blood Count 4.25 M/uL (4.2-5.4); White Blood Count 17.41 K/uL (4.8-10.8)
[2020-08-31 10:27] LABS: Partial Thromboplastin Time 28.5 Seconds (21.0-31.0); Prothrombin Time 10.3 Seconds (9.0-12.0)
--- NOTE | 2020-08-31 10:33 | XRay Report ---
XR chest 1V portable HISTORY: 30 years-old Female Dyspnea, + COVID acute shortness of breath. COVID Positive. COMPARISON: Chest radiograph 08/28/2020 TECHNIQUE: Portable AP view of the chest FINDINGS: Cardiac silhouette is normal in size. No pneumothorax. Progressively worsened bilateral airspace opac ities. No pleural effusion. Bones appear grossly intact. IMPRESSION: Progressively worsened bilateral airspace opacities compatible with multifocal pneumonia. ACT 112: Negative or not required by law. The above report was generated using voice recognition software. It may contain grammatical, syntax o r spelling errors. Electronically signed by: Chris Chahal M.D. 08/31/2020 10:31 AM
[2020-08-31 10:37] LABS: Pregnancy Test, Serum Negative (Negative)
[2020-08-31 10:38] LABS: Alanine Aminotransferase 67 U/L (12-78); Albumin Level 2.9 gm/dl (3.4-5.0); Aspartate Aminotransferase 35 U/L (15-37); BUN Creatinine Ratio 6.4 (10-20); Blood Urea Nitrogen 4 mg/dl (7-18); Calcium 9.3 mg/dl (8.5-10.1); Carbon Dioxide 26 mmol/L (21-32); Chloride 104 mmol/L (98-107); Creatinine Clr Calc Pharmacy 118.6 ml/min; Est GFR (African American) 142.2; Est GFR (Non-African American) 122.7; Glucose 103 mg/dl (70-99); Magnesium 1.9 mg/dl (1.8-2.4); Potassium 3.4 mmol/L (3.5-5.1); Sodium 138 mmol/L (136-145)
[2020-08-31 10:43] LABS: Albumin Globulin Ratio 0.6 (0.9-2); Alkaline Phosphatase 109 U/L (45-117); Bilirubin,Total 0.3 mg/dl (0.2-1); Globulin 5.3 gm/dl (2.5-4.0); Total Protein 8.2 gm/dl (6.4-8.2); Troponin I < 0.015 ng/ml (0-0.045)
[2020-08-31] MEDS ORDERED: CEFEPIME 2,000 MG/20 ML VIAL IV STA (10:55)
[2020-08-31] MEDS ORDERED: IBUPROFEN 600 MG TAB PO STA (11:07)
--- NOTE | 2020-08-31 11:15 | Electrocardiogram Report ---
Test Reason : Blood Pressure : / mmHG Vent. Rate : 111 BPM Atrial Rate : 111 BPM P-R Int : 116 ms QRS Dur : 076 ms QT Int : 304 ms P-R-T Axes : 030 024 028 degrees QTc Int : 413 ms Sinus tachycardia Nonspecific ST abnormality Otherwise normal ECG When compared with ECG of 28-AUG-2020 15:41, No significant change was found Confirmed by Niall Riojas ([id number]) on 08/31/2020 11:14:54 AM Referred By: REFERRED SELF Confirmed By:Ronald Riojas
--- NOTE | 2020-08-31 11:31 | CT Scan Report ---
CT angio chest PE protocol CT DOSE: 297.31 mGy.cm HISTORY: 30 years-old Female with Dyspnea, + covid, OCP. Acute shortness of breath. COVID Positive. TECHNIQUE: Multiple CTA images of the chest were obtained after the intravenous administration of 120 ml Optiray 320. Coronal and sagittal MIPS were obtained from the axial data set and were submitted for review. All measurements were obtained according to NASCET criteria. A dose lowering technique w as utilized adhering to the principles of ALARA. COMPARISON: Chest radiograph of same day and also 08/28/2020 FINDINGS: CTA: The heart is normal in size without pericardial effusion. There is no thoracic aortic aneurysm or dis section. Patency of the imaged great vessels. The pulmonary arterial tree is opacified to the level o f the subsegmental branches and demonstrates no filling defects to suggest thromboembolic disease. CT CHEST: Unremarkable thyroid. Mild residual thymic tissue of the anterior mediastinum. Prominent mediastinal and hilar lymph nodes measuring up to 8-9 mm are likely reactive. Small pleural effusions. No pneumot horax. Low and patchy multilobar distribution of bilateral airspace opacities are noted, progressivel y worsened from 08/29/2020. Intermixed groundglass densities of the lung bases. Central airways are pat ent. No acute process of the imaged upper abdomen. The breast parenchyma and soft tissues appear unremarka ble. Bones appear intact. IMPRESSION: 1. No pulmonary emboli. 2. Extensive bilateral alveolar opacities have progressively worsened from 08/28/2020 compatible with m ultifocal pneumonia. 3. Small pleural effusions. ACT 112: Negative or not required by law. The above report was generated using voice recognition software. It may contain grammatical, syntax o r spelling errors. Electronically signed by: Chris Chahal M.D. 08/31/2020 11:29 AM
[2020-08-31] MEDS ORDERED: ACETAMINOPHEN 325 MG TAB PO STA (12:27)
[2020-08-31] MEDS ORDERED: POTASSIUM CHLORIDE CRTAB 20 MEQ TABCR PO STA (12:39)
--- NOTE | 2020-08-31 12:43 | History & Physical Report ---
Date of Service August 31, 2020 Assessment & Plan (1) Sepsis: (2) Multifocal pneumonia: (3) COVID-19 virus infection: This is a 22-year-old female with history of multiple sclerosis and Covid who presents with continued fevers and shortness of breath and was found to have multifocal pneumonia. -Covid positive on 08/15, has completed 10-day course of steroids in outpatient setting followed by doxycycline for bilateral PNA on CXR 08/26, switched to azithromycin and cefdinir on 08/28, started on prednisone 20mg BID -Returns to ED today after fever of 103.1 F with pulse ox ranging from 87-89% at home -Meets sepsis criteria with tachycardia, tachypnea, leukocytosis (steroids likely contributing) and lactic acid of 2.3 Procalcitonin normal -Chest CTA with extensive bilateral alveolar opacities have progressively worsened from 08/28/2020 compatible with multifocal pneumonia and small pleural effusions. No evidence of pulmonary embolism -Pneumonia likely viral but concern for superimposed bacterial pna. Blood cx pending. Trend lactic acid. Continue empiric abx of rocephin and azithromycin for now. Broaden abx coverage if no improvement -IV dexamethasone, IV Remdesivir, supplemental O2, proning as needed, ventolin inhaler, antipyretics -Will discuss case with pulmonology (4) Hypokalemia: Initial K 3.4 - replaced. Monitor with daily BMP (5) Multiple sclerosis: [facility]. Gets Ocrevus infusions q6M, due in October -Holding armodafinil for now DVT Ppx: SQ Lovenox 40 Q12 Code status: FULL PCP: Chris Dispo: Admit to PCU Patient seen in collaboration with Dr. Mandujano. Please see addendum. History of Present Illness Chief Complaint: Fever, shortness of breath Primary Care Provider: Georgina Perez, DO This is a 22-year-old female with history of multiple sclerosis and Covid who presents with continued fevers and shortness of breath. 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 Tested positive for Covid on 08/15 and began a 10-day course of steroids in outpatient setting. Continue to have fevers and chest tightness and was seen by PCP on 08/26 with chest x-ray showing bilateral pneumonia. Was started on doxycycline. Continue to feel poorly and was seen in the ED on 08/28 when her antibiotic regimen was switched to cefdinir and azithromycin and was started on prednisone 20 twice daily. Was told to return to the ED if her symptoms worsen. Early this morning, patient had a temp of 103.1 F with pulse ox ranging from 87 to 89%. Improved 90% after using Ventolin inhaler. Continues to feel short of breath with dry cough, occasional palpitations, fever and chills. Denies chest pain, nausea, vomiting, abdominal pain, dysuria or constipation. Has been having some diarrhea since starting antibiotics. Allergies Allergy/AdvReac Type Severity Reaction Status Date / Time glatiramer (copolymer 1) Allergy Severe Hives and Verified 08/31/20 09:21 [From Copaxone] shortness of breath Home Medications Medication Instructions Recorded Confirmed Type cholecalciferol (vitamin D3) 125 5,000 units PO DAILY tab 04/06/19 08/31/20 History mcg (5,000 unit) tablet ocrelizumab 30 mg/mL intravenous 600 mg IV .COMPLEX 360 Days #2 ml 10/20/19 08/31/20 Rx solution armodafinil 200 mg tablet 200 mg PO DAILY 30 Days #30 tab 07/01/20 08/31/20 Rx albuterol sulfate [Proventil HFA] 2 inh INHALATION Q6H #18 g 08/28/20 08/31/20 Rx azithromycin [Zithromax Z-Lm] See Rx Instructions .ROUTE 08/28/20 08/31/20 Rx .COMPLEX #6 tab benzonatate 100 mg PO TID PRN 08/28/20 08/31/20 History cefdinir 300 mg PO BID 7 Days #20 cap 08/28/20 08/31/20 Rx drospirenone-ethinyl estradiol 1 tab PO DAILY 08/28/20 08/31/20 History prednisone 20 mg PO BID #10 tab 08/28/20 08/31/20 Rx ascorbic acid (vitamin C) 500 mg PO DAILY 08/31/20 08/31/20 History zinc acetate 50 mg PO DAILY 08/31/20 08/31/20 History Past Med/Surg History Medical History (Updated 08/31/20 @ 13:06 by Elizabeth Lay PA-C) Dizziness Fatigue Hypokalemia Multiple sclerosis Surgical History History of dental surgery Family History (Updated 08/31/20 @ 13:05 by Elizabeth Lay PA-C) Family/Other Lupus (systemic lupus erythematosus) Other Stroke Social History Smoking Status: Former smoker Hx Alcohol Use: Yes Hx Substance Use: No Preferred Language: Venezuelan Feels Safe at Home: Yes Review of Systems Review of Systems: At least ten systems reviewed and negative except as noted in the HPI. Physical Exam Physical Exam: Please see Dr. Mandujano's addendum for physical exam details. Results & Data Results & Data ([facility]) Vital Signs (Past 12 Hours) Vital Signs Temp Pulse Resp BP Pulse Ox 08/31/20 12:26 37.8 C H 08/31/20 11:50 114 H 47 H 99 08/31/20 11:40 115 H 32 H 100 08/31/20 11:30 120 H 29 H 116/86 99 08/31/20 11:22 144 H 27 H 08/31/20 11:10 39.0 C H 08/31/20 11:08 114 H 38 H 95 08/31/20 11:00 109 H 42 H 114/74 99 08/31/20 10:50 108 H 43 H 98 08/31/20 10:40 102 H 38 H 98 08/31/20 10:30 106 H 31 H 112/76 98 08/31/20 10:20 119 H 28 H 95 08/31/20 10:10 108 H 42 H 100 08/31/20 10:09 90 08/31/20 10:07 112 H 50 H 98 08/31/20 10:06 125 H 29 H 115/80 100 08/31/20 09:52 37.4 C 32 H 08/31/20 09:50 90 08/31/20 09:02 36.3 C L 130 H 22 124/78 95 Laboratory Results Short CBC 08/31/20 08/31/20 08/31/20 Range/Units 10:08 10:08 10:08 WBC 17.41 H (4.8-10.8) K/uL Hgb 12.3 (12.0-16.0) g/dL Hct 37.3 (37-47) % Plt Count 405 H (130-400) K/uL Creatinine 0.62 (0.6-1.2) mg/dl Lactate (0.4-2.0) mmol/L Procalcitonin 0.06 (0-0.5) ng/ml 08/31/20 Range/Units 11:50 WBC (4.8-10.8) K/uL Hgb (12.0-16.0) g/dL Hct (37-47) % Plt Count (130-400) K/uL Creatinine (0.6-1.2) mg/dl Lactate 2.3 H* (0.4-2.0) mmol/L Procalcitonin (0-0.5) ng/ml BMP 08/31/20 10:08 Sodium 138 Potassium 3.4 L Chloride 104 Carbon Dioxide 26 BUN 4 L Creatinine 0.62 Glucose 103 H Calcium 9.3 Cardiac Enzymes 08/31/20 Range/Units 10:08 Troponin I < 0.015 (0-0.045) ng/ml Liver Function 08/31/20 Range/Units 10:08 Total Bilirubin 0.3 (0.2-1) mg/dl AST 35 (15-37) U/L ALT 67 (12-78) U/L Alkaline Phosphatase 109 (45-117) U/L Albumin 2.9 L (3.4-5.0) gm/dl Diagnostic Findings CXR: IMPRESSION: Progressively worsened bilateral airspace opacities compatible with multifocal pneumonia. Chest CTA: IMPRESSION: 1. No pulmonary emboli. 2. Extensive bilateral alveolar opacities have progressively worsened from 08/28/2020 compatible with multifocal pneumonia. 3. Small pleural effusions. Code Status & VTE Plan VTE Prophylaxis Plan VTE Prophylaxis will be ordered: Yes Supervising Physician Co-Signing Physician Notes I saw this patient in coordination with the physician cement tester assistant, I participated in the history, physical, review of systems, and physical exam. I reviewed the medications with the patient and the physician cement tester assistant and helped reconcile the medications. I helped take a detailed family and social history as well. I formulated the assessment and plan personally with the physician cement tester assistant and went over it with the patient. ROS-No Headache, No Visual Changes, No Nausea, No Vomiting, + Fever, + Chills, No Neck Pain or Stiffness, No Chest Pain, Occas Palpitations, + SOB, + CARBAJAL, + Cough, No Sputum, No Wheezing, No Abdominal Pain, No Diarrhea, No Hematemesis, No Hemoptysis, No Unexpected Weight Loss, No Flank pain, No Melena, No Hematochezia, No Frequency, No Urgency, No Burning, No Hematuria, No Rashes, No Diaphoresis. Appetite is Normal Physical Exam Gen-AAO x 3, NAD, febrile, Bronchospastic Head-NCAT, EOMI, PERRLA, Anicteric Sclera, No Posterior Pharyngeal Erythema Neck-Supple, No JVD, No Thyromegaly, No Masses, No LAD, No Bruits Lungs-Clear to Auscultation Bilaterally, No Rales, No Rhonchi, No Wheezing, No Crepitus Chest-No S4, +S1, +S2, No S3, No Murmurs, No Rubs, No Gallops, No Ectopy Abdomen-Soft, Bowel Sounds Present, Non Tender, Non Distended, No Hepatomegaly, No Splenomegaly, No Palpable Masses, No Rebound, No Rigidity, No Guarding Musculoskeletal-Full Range of Motion Bilaterally, No CVAT Extremities-No Cyanosis, No Clubbing, No Edema Nuero-Cranial Nerves II-XII grossly intact, Motor WNL, DTRs WNL, Strength WNL, Non Focal Psych-Normal Mood
--- NOTE | 2020-08-31 13:06 | Pulmonary Consultation ---
Date of Consultation August 31, 2020 Assessment & Plan (1) Multifocal pneumonia: CT chest 08/31/2020 personally reviewed: Diffuse bilateral dense consolidative process appreciated affecting upper and lower lobes with air bronchograms. Mild mediastinal lymphadenopathy is also appreciated likely reactive. Small bilateral pleural effusions. --Acute hypoxic respiratory failure Secondary to multilobar pneumonia due to Covid 19 although this has very dense consolidation with air bronchograms Procalcitonin 0.06, CRP 12.3, ESR 35 Nasal MRSA negative Patient was diagnosed with COVID-19 on 08/15/2020 She has completed the course of steroids and outpatient as well as an antibiotic course of doxycycline as well as azithromycin Incentive spirometry with mucolytic Given the dense consolidation appreciated I would continue with antibiotic coverage for at least 5 days. With the supplementation to keep oxygen saturation greater than 90% --History of multiple sclerosis On Ocrelizumab anti-CD 20 Plan: Given that patient was diagnosed with COVID-19 on 08/15/2020, I do not think remdesivir would have any prognostic benefit. Agree with antibiotics given that she is almost 2 weeks out from initial presentation. 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 Would continue with dexamethasone for no more than 5 days followed by gradual taper. Follow mycoplasma and Legionella antibodies as well as influenza A and B Please note the above document was generated using voice recognition software. It may contain grammatical, syntax or spelling errors.Any formal questions or concerns about the content, text or information contained within the body of this dictation should be directly addressed to the provider for clarification. (2) COVID-19 virus infection: History of Present Illness History of Present Illness 30-year-old female with past medical history of multiple sclerosis on monoclonal antibody getting it every 6 months last dose was in April. 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 She has finished the course of steroids as an outpatient which was prolonged with antibiotic doxycycline. As well as azithromycin course. The reason she came to the hospital was persistent fever, cough and shortness of breath Pulmonary consulted because of the CAT scan finding and prolonged symptoms. At the time of examination patient was on 5 L nasal cannula saturating 95%. I went down to 4 L. She was talking in full sentences. She did cough a couple of times. She has been using incentive spirometry as well as flutter valve. Patient denies any chest pain. No headache, no dizziness. She states that the cough is worse when she is sleeping. She has been self proning. Allergies Allergy/AdvReac Type Severity Reaction Status Date / Time glatiramer (copolymer 1) Allergy Severe Hives and Verified 08/31/20 09:21 [From Copaxone] shortness of breath Home Medications Medication Instructions Recorded Confirmed Type cholecalciferol (vitamin D3) 125 5,000 units PO DAILY tab 04/06/19 08/31/20 History mcg (5,000 unit) tablet ocrelizumab 30 mg/mL intravenous 600 mg IV .COMPLEX 360 Days #2 ml 10/20/19 08/31/20 Rx solution armodafinil 200 mg tablet 200 mg PO DAILY 30 Days #30 tab 07/01/20 08/31/20 Rx albuterol sulfate [Proventil HFA] 2 inh INHALATION Q6H #18 g 08/28/20 08/31/20 Rx azithromycin [Zithromax Z-Lm] See Rx Instructions .ROUTE 08/28/20 08/31/20 Rx .COMPLEX #6 tab benzonatate 100 mg PO TID PRN 08/28/20 08/31/20 History cefdinir 300 mg PO BID 7 Days #20 cap 08/28/20 08/31/20 Rx drospirenone-ethinyl estradiol 1 tab PO DAILY 08/28/20 08/31/20 History prednisone 20 mg PO BID #10 tab 08/28/20 08/31/20 Rx ascorbic acid (vitamin C) 500 mg PO DAILY 08/31/20 08/31/20 History zinc acetate 50 mg PO DAILY 08/31/20 08/31/20 History Patient History Medical History (Updated 08/31/20 @ 17:06 by JOSÉ MIGUEL Liao) Dizziness Fatigue Hypokalemia Multiple sclerosis Surgical History History of dental surgery Family History (Updated 08/31/20 @ 13:05 by Elizabeth Lay PA-C) Family/Other Lupus (systemic lupus erythematosus) Other Stroke Social History Smoking Status: Former smoker Hx Alcohol Use: Yes Alcohol type: beer and wine Hx Substance Use: No Preferred Language: Georgian Communication Ability: Effective Delinquency Prevention Social Worker Required: No Beliefs That Will Affect Care: None Current Living Situation: Significant Other Other Information That Helps Us Care for You: No Feels Safe at Home: Yes Assistive Devices: None Review of Systems Review of Systems: All systems reviewed & are unremarkable except as noted in HPI & below Physical Exam Physical Exam: Constitutional: No acute distress HEENT: EOMI, PERRLA Respiratory system: Decreased air entry bilaterally, positive crackles bilateral lower lobes, no rhonchi, no wheeze CVS: S1-S2 positive, tachycardia Abdomen: Soft, nontender, nondistended, positive bowel sounds x4 Extremities: +2 pulses bilaterally radialis/ dorsalis pedis, no cyanosis, no edema, tattoos all over the body Neuro: Awake alert oriented x3 Psych: Normal mood and affect G/U: No King Skin: no rashes, warm and dry Lymphatic: no cervical or axillary lymphadenopathy Results & Data Results & Data ([facility]) Vital Signs (Past 12 Hours) Vital Signs Temp Pulse Resp BP Pulse Ox 08/31/20 12:26 37.8 C H 08/31/20 11:50 114 H 47 H 99 08/31/20 11:40 115 H 32 H 100 08/31/20 11:30 120 H 29 H 116/86 99 08/31/20 11:22 144 H 27 H 08/31/20 11:10 39.0 C H 08/31/20 11:08 114 H 38 H 95 08/31/20 11:00 109 H 42 H 114/74 99 08/31/20 10:50 108 H 43 H 98 08/31/20 10:40 102 H 38 H 98 08/31/20 10:30 106 H 31 H 112/76 98 08/31/20 10:20 119 H 28 H 95 08/31/20 10:10 108 H 42 H 100 08/31/20 10:09 90 08/31/20 10:07 112 H 50 H 98 08/31/20 10:06 125 H 29 H 115/80 100 08/31/20 09:52 37.4 C 32 H 08/31/20 09:50 90 08/31/20 09:02 36.3 C L 130 H 22 124/78 95 08/31/20 10:08 08/31/20 10:08 PG Care Time/CCT Total # of Minutes Spent Total Time Spent with Patient: Total time spent is greater than 50% in coordination of care (as documented) at patient's floor/unit and/or counseling patient: Coding Level of Care Code 68843 Inpt Consult Level 4 Diagnoses Multifocal pneumonia J18.9 COVID-19 virus infection U07.1
[2020-08-31] MEDS ORDERED: SODIUM CHLORIDE 0.9% 1000ML 500 ML IV ONE (13:23)
[2020-08-31] MEDS ORDERED: IBUPROFEN 600 MG TAB PO PRN (14:22)
[2020-08-31] MEDS ORDERED: BENZONATATE 100 MG CAPSULE PO PRN (14:22)
[2020-08-31 14:37] LABS: Appearance Urine Clear (Clear); Bilirubin Urine Negative (Negative); Blood Urine Negative (Negative); Color Urine Yellow; Glucose Urine UA Negative (Negative); Ketones Urine Negative (Negative); Leukocyte Esterase Urine Negative (Negative); Nitrite Urine Negative (Negative); Protein Urine Negative (Negative); Specific Gravity Urine 1.039 (1.000-1.030); Urobilinogen Urine Negative (Negative); pH Urine 7.5 (4.5-7.5)
[2020-08-31] MEDS ORDERED: POTASSIUM CHLORIDE 20 MEQ in SODIUM CHLORIDE 0.9% 1000ML 1,000 ML IV SCH (15:00)
[2020-08-31] MEDS ORDERED: REMDESIVIR 200 MG in SODIUM CHLORIDE 0.9% 210 ML IV ONE (15:00)
[2020-08-31] MEDS: guaiFENesin/DEXTROM SYRUP 200MG/20MG 10ML UDC PO SCH ×2 (16:10→21:35)
[2020-08-31] MEDS: AZITHROMYCIN 500 MG in DEXTROSE 5% 250 ML IV SCH (16:11)
[2020-08-31] MEDS: ENOXAPARIN INJ 40 MG/0.4 ML SYR SQ SCH (17:09)
[2020-08-31] MEDS: SODIUM CHLORIDE 0.9% 10ML FLUSH IV SCH (18:06)
[2020-08-31] MEDS: cefTRIAXone SODIUM 2,000 MG in DEXTROSE 5% 50 ML IV SCH (19:52)
[2020-08-31] MEDS: NSS + 20MEQ KCL 20 MEQ/1,000 ML BAG IV SCH (19:52)
[2020-08-31] MEDS: ACETAMINOPHEN 325 MG TAB PO PRN (20:30)
[2020-08-31] MEDS ORDERED: KETOROLAC TROMETHAMINE 15 MG/ML VIAL IV ONE (22:48)
[2020-08-31] MEDS ORDERED: KETOROLAC TROMETHAMINE 15 MG/ML VIAL ONE (22:52)
[2020-08-31] MEDS ORDERED: SODIUM CHLORIDE 0.9% 500 ML IV SCH (23:00)
[2020-08-31] MEDS: ALBUTEROL HFA 8 GM INHALER INH PRN (23:10)
[2020-08-31] MEDS ORDERED: COUGH DROP (SUGAR FREE) LOZ 24 LOZ/1 BOX BUCCAL PRN (23:57)
[2020-09-01] MEDS ORDERED: COUGH DROP (SUGAR FREE) LOZ 24 LOZ/1 BOX BUCCAL ONE (00:08)
[2020-09-01] MEDS: ACETAMINOPHEN 325 MG TAB PO PRN ×5 (00:30→20:30)
[2020-09-01] MEDS ORDERED: IBUPROFEN 600 MG TAB PO ONE (01:45)
[2020-09-01] MEDS: IBUPROFEN 600 MG TAB PO PRN ×3 (01:45→16:44)
[2020-09-01 02:31] LABS: Hematocrit (blood only) 29.5 % (37-47); Hemoglobin 9.7 g/dL (12.0-16.0); Mean Corpuscular Hemoglobin 28.8 pg (25-34); Mean Corpuscular Hgb Conc 32.9 g/dL (32-36); Mean Corpuscular Volume 87.5 fL (80-100); Mean Platelet Volume 9.4 fL (7.4-10.4); Platelet Count 343 K/uL (130-400); RDW Coefficient of Variation 13.2 % (11.5-14.5); RDW Standard Deviation 42.4 fL (36.4-46.3); Red Blood Count 3.37 M/uL (4.2-5.4); White Blood Count 13.67 K/uL (4.8-10.8)
[2020-09-01 02:48] LABS: ALC (manual) 1.76 K/uL (1.2-3.4); ANC (manual) 11.32 K/uL (1.4-6.5); Lymphocytes # (manual) 1.76 K/uL (1.2-3.4); Lymphocytes % (manual) 12.9 %; Monocytes # (manual) 0.23 K/uL (0.11-0.59); Monocytes % (manual) 1.7 %; Myelocytes # (manual) 0.36 K/uL (0-0); Myelocytes % (manual) 2.6 %; Neutrophils # (manual) 11.32 K/uL (1.4-6.5); Neutrophils % (manual) 82.8 %
[2020-09-01 03:06] LABS: Alanine Aminotransferase 42 U/L (12-78); Albumin Globulin Ratio 0.5 (0.9-2); Albumin Level 2.1 gm/dl (3.4-5.0); Alkaline Phosphatase 74 U/L (45-117); BUN Creatinine Ratio 10.8 (10-20); Bilirubin,Total 0.3 mg/dl (0.2-1); Blood Urea Nitrogen 5 mg/dl (7-18); Calcium 7.6 mg/dl (8.5-10.1); Carbon Dioxide 25 mmol/L (21-32); Chloride 108 mmol/L (98-107); Est GFR (African American) > 150.0; Est GFR (Non-African American) 138.4; Globulin 4.4 gm/dl (2.5-4.0); Glucose 85 mg/dl (70-99); Sodium 136 mmol/L (136-145); Total Protein 6.5 gm/dl (6.4-8.2)
[2020-09-01 03:56] LABS: Potassium 3.4 mmol/L (3.5-5.1)
[2020-09-01] MEDS: ALBUTEROL HFA 8 GM INHALER INH PRN ×4 (04:30→20:30)
[2020-09-01] MEDS ORDERED: POTASSIUM CHLORIDE CRTAB 20 MEQ TABCR PO STA (05:03)
[2020-09-01] MEDS: NSS + 20MEQ KCL 20 MEQ/1,000 ML BAG IV SCH ×2 (06:13→16:50)
[2020-09-01] MEDS: guaiFENesin/DEXTROM SYRUP 200MG/20MG 10ML UDC PO SCH ×3 (06:14→22:01)
[2020-09-01] MEDS: ENOXAPARIN INJ 40 MG/0.4 ML SYR SQ SCH ×2 (06:14→16:50)
[2020-09-01] MEDS ORDERED: HYDROcodone/HOMATROPINE SYRUP 5MG/1.5MG 5ML UDP PO STA ×2 (06:57→07:14)
[2020-09-01] MEDS: KETOROLAC 30 MG/ML VIAL IV PRN (07:39)
[2020-09-01] MEDS: CHOLECALCIFEROL 1,000 UNITS 25 MCG TAB PO SCH (07:47)
[2020-09-01] MEDS: dexAMETHasone 6 MG in SYRINGE 0 ML IV SCH (07:47)
[2020-09-01] MEDS: ASCORBIC ACID 500 MG TAB PO SCH (07:47)
[2020-09-01] MEDS ORDERED: NON-FORMULARY MEDICATION (Zinc Acetate 50 mg (zinc) Capsule) PO SCH (09:00)
[2020-09-01] MEDS: BENZONATATE 100 MG CAPSULE PO PRN ×3 (09:10→20:29)
--- NOTE | 2020-09-01 09:20 | Hospitalist Progress Note ---
Date of Service September 01, 2020 Assessment & Plan (1) Sepsis: (2) Multifocal pneumonia: (3) COVID-19 virus infection: This is a 30-year-old female with history of multiple sclerosis and Covid who presents with continued fevers and shortness of breath and was found to have multifocal pneumonia. -Covid positive on 08/15, has completed 10-day course of steroids in outpatient setting followed and doxycycline for bilateral PNA on CXR 08/26, switched to azithromycin and cefdinir on 08/28, started on prednisone 20mg BID -Returns to ED 08/31 after fever of 103.1 F with pulse ox ranging from 87-89% at home -Meets sepsis criteria with tachycardia, tachypnea, leukocytosis (steroids likely contributing) and lactic acid of 2.3 Procalcitonin normal -Chest CTA with extensive bilateral alveolar opacities have progressively worsened from 08/28/2020 compatible with multifocal pneumonia and small pleural effusions. No evidence of pulmonary embolism -Pneumonia likely viral but concern for superimposed bacterial pna. Blood cx pending. Trend lactic acid. Continue empiric abx of Rocephin and Azithromycin for now. Broaden abx coverage if no improvement -IV dexamethasone, IV Remdesivir, supplemental O2, proning as needed, ventolin inhaler, antipyretics, Hycodan, Tesselon perles -Pulmonology on case (4) Hypokalemia: Initial K 3.4 - replaced. Monitor with daily BMP (5) Multiple sclerosis: [facility]. Gets Ocrevus infusions q6M, due in October -Holding armodafinil for now DVT Ppx: SQ Lovenox 40 Q12 Code status: FULL PCP: Chris Dispo: Continue PCU Admission and Anticipated Discharge Date Admission Date: August 31, 2020 Supervising Physician Co-Signing Physician Notes ROS-No Headache, No Visual Changes, No Nausea, No Vomiting, + Fever, + Chills, No Neck Pain or Stiffness, No Chest Pain, Occas Palpitations, + SOB, + CARBAJAL, + Cough, No Sputum, No Wheezing, No Abdominal Pain, No Diarrhea, No Hematemesis, No Hemoptysis, No Unexpected Weight Loss, No Flank pain, No Melena, No Hematochezia, No Frequency, No Urgency, No Burning, No Hematuria, No Rashes, No Diaphoresis. Appetite is Normal Physical Exam Gen-AAO x 3, NAD, febrile, Bronchospastic, feels a little worse Head-NCAT, EOMI, PERRLA, Anicteric Sclera, No Posterior Pharyngeal Erythema Neck-Supple, No JVD, No Thyromegaly, No Masses, No LAD, No Bruits Lungs-Clear to Auscultation Bilaterally, No Rales, No Rhonchi, No Wheezing, No Crepitus Chest-No S4, +S1, +S2, No S3, No Murmurs, No Rubs, No Gallops, No Ectopy Abdomen-Soft, Bowel Sounds Present, Non Tender, Non Distended, No Hepatomegaly, No Splenomegaly, No Palpable Masses, No Rebound, No Rigidity, No Guarding Musculoskeletal-Full Range of Motion Bilaterally, No CVAT Extremities-No Cyanosis, No Clubbing, No Edema Nuero-Cranial Nerves II-XII grossly intact, Motor WNL, DTRs WNL, Strength WNL, Non Focal Psych-Normal Mood Results & Data Results & Data ([facility]) Vital Signs (Past 12 Hours) Vital Signs Temp Pulse Pulse Resp BP Pulse Ox 09/01/20 08:30 39.0 C H 09/01/20 07:28 38.2 C H 119 H 20 119/79 93 09/01/20 04:57 37.4 C 117 H 33 H 93 09/01/20 03:36 37.4 C 116 H 28 H 110/70 93 09/01/20 02:26 38.2 C H 118 H 30 H 09/01/20 01:55 38.8 C H 115 H 38 H 09/01/20 01:10 39.6 C H 142 H 40 H 94 09/01/20 00:35 39.5 C H 09/01/20 00:21 97 H 08/31/20 23:15 39.0 C H 08/31/20 22:39 126/68 08/31/20 22:37 37.8 C H 125 H 24 97 (1) Sepsis Sepsis acute organ dysfunction status: unspecified Sepsis type: sepsis due to unspecified organism Qualified Code(s): A41.9 - Sepsis, unspecified organism
[2020-09-01] MEDS ORDERED: REMDESIVIR 100 MG in SODIUM CHLORIDE 0.9% 230 ML IV SCH (12:00)
[2020-09-01] MEDS: SODIUM CHLORIDE 0.9% 10ML FLUSH IV SCH (14:02)
[2020-09-01] MEDS: AZITHROMYCIN 500 MG in DEXTROSE 5% 250 ML IV SCH (14:37)
[2020-09-01] MEDS: HYDROcodone/HOMATROPINE SYRUP 5MG/1.5MG 5ML UDP PO PRN ×2 (14:37→20:30)
[2020-09-01] MEDS: cefTRIAXone SODIUM 2,000 MG in DEXTROSE 5% 50 ML IV SCH (16:49)
[2020-09-01 21:39] LABS: Influenza A virus by PCR Negative (Negative); Influenza B virus by PCR Negative (Negative)
[2020-09-02] MEDS: ACETAMINOPHEN 325 MG TAB PO PRN ×5 (01:02→19:43)
[2020-09-02] MEDS: ALBUTEROL HFA 8 GM INHALER INH PRN ×5 (01:03→21:00)
[2020-09-02] MEDS: KETOROLAC 30 MG/ML VIAL IV PRN ×3 (01:45→17:29)
[2020-09-02] MEDS: NSS + 20MEQ KCL 20 MEQ/1,000 ML BAG IV SCH (03:02)
[2020-09-02] MEDS: IBUPROFEN 600 MG TAB PO PRN (04:03)
[2020-09-02] MEDS: HYDROcodone/HOMATROPINE SYRUP 5MG/1.5MG 5ML UDP PO PRN ×4 (04:06→20:45)
[2020-09-02] MEDS: BENZONATATE 100 MG CAPSULE PO PRN ×2 (04:09→19:43)
[2020-09-02] MEDS: guaiFENesin/DEXTROM SYRUP 200MG/20MG 10ML UDC PO SCH ×3 (06:19→21:10)
[2020-09-02] MEDS: ENOXAPARIN INJ 40 MG/0.4 ML SYR SQ SCH ×2 (06:19→17:29)
[2020-09-02 06:41] LABS: Basophils # (auto) 0.01 K/uL (0-0.2); Basophils % (auto) 0.1 %; Eosinophils # (auto) 0.01 K/uL (0-0.5); Eosinophils % (auto) 0.1 %; Hematocrit (blood only) 30.6 % (37-47); Hemoglobin 10.1 g/dL (12.0-16.0); Immature Granulocytes % (auto) 1.5 %; Lymphocytes # (auto) 1.67 K/uL (1.2-3.4); Lymphocytes % (auto) 12.5 %; Mean Corpuscular Hemoglobin 28.9 pg (25-34); Mean Corpuscular Volume 87.4 fL (80-100); Mean Platelet Volume 9.8 fL (7.4-10.4); Monocytes # (auto) 0.39 K/uL (0.11-0.59); Monocytes % (auto) 2.9 %; Neutrophils # (auto) 11.08 K/uL (1.4-6.5); Neutrophils % (auto) 82.9 %; Platelet Count 402 K/uL (130-400); RDW Coefficient of Variation 13.2 % (11.5-14.5); RDW Standard Deviation 42.3 fL (36.4-46.3); White Blood Count 13.36 K/uL (4.8-10.8)
[2020-09-02 07:22] LABS: Alanine Aminotransferase 37 U/L (12-78); Albumin Globulin Ratio 0.5 (0.9-2); Albumin Level 2.1 gm/dl (3.4-5.0); Alkaline Phosphatase 81 U/L (45-117); BUN Creatinine Ratio 13.7 (10-20); Bilirubin,Total 0.2 mg/dl (0.2-1); Blood Urea Nitrogen 6 mg/dl (7-18); Calcium 8.8 mg/dl (8.5-10.1); Carbon Dioxide 25 mmol/L (21-32); Chloride 108 mmol/L (98-107); Creatinine Clr Calc Pharmacy 176.3 ml/min; Est GFR (African American) > 150.0; Est GFR (Non-African American) 139.5; Globulin 4.3 gm/dl (2.5-4.0); Glucose 78 mg/dl (70-99); Total Protein 6.4 gm/dl (6.4-8.2)
[2020-09-02 07:26] LABS: Sodium 139 mmol/L (136-145)
[2020-09-02 07:31] LABS: Aspartate Aminotransferase 24 U/L (15-37)
--- NOTE | 2020-09-02 07:39 | XRay Report ---
XR chest 1V portable CLINICAL HISTORY: Worsening SOB COMPARISON STUDY: Chest radiograph and chest CT August 31, 2020. FINDINGS: There is no pneumothorax. There are small left and trace right pleural effusions. Extensive bilateral consolidation, greater within the left lung, has increased since prior exam of August 31, 2010. Cardiomediastinal silhouette is stable. IMPRESSION: 1. Reduction of extensive left lung consolidation and right lung multifocal airspace opacities. The f indings represent an infectious process. 2. Small left and trace right pleural effusions. ACT 112: Negative or not required by law. Electronically signed by: Chris Rojas M.D. 09/02/2020 7:37 AM
--- NOTE | 2020-09-02 08:28 | Hospitalist Progress Note ---
Date of Service September 02, 2020 Assessment & Plan (1) Sepsis: (2) Multifocal pneumonia: (3) COVID-19 virus infection: This is a 30-year-old female with history of multiple sclerosis and Covid who presents with continued fevers and shortness of breath and was found to have multifocal pneumonia. -Covid positive on 08/15, has completed 10-day course of steroids in outpatient setting followed and doxycycline for bilateral PNA on CXR 08/26, switched to azithromycin and cefdinir on 08/28, started on prednisone 20mg BID -Returns to ED 08/31 after fever of 103.1 F with pulse ox ranging from 87-89% at home -Meets sepsis criteria with tachycardia, tachypnea, leukocytosis (steroids likely contributing) and lactic acid of 2.3 Procalcitonin normal -Chest CTA with extensive bilateral alveolar opacities have progressively worsened from 08/28/2020 compatible with multifocal pneumonia and small pleural effusions. No evidence of pulmonary embolism -Pneumonia likely viral but concern for superimposed bacterial pna. Blood cx pending. Trend lactic acid. Continue empiric abx of Rocephin and Azithromycin for now. Broaden abx coverage if no improvement -IV dexamethasone, IV Remdesivir, supplemental O2, proning as needed, ventolin inhaler, antipyretics, Hycodan, Tesselon perles -Pulmonology on case Mild Improvement on CXR (4) Hypokalemia: Initial K 3.4 - replaced. Monitor with daily BMP, K 20 meq PO TID (5) Multiple sclerosis: [facility]. Gets Ocrevus infusions q6M, due in October -Holding armodafinil for now DVT Ppx: SQ Lovenox 40 Q12 Code status: FULL PCP: Chris Dispo: Continue PCU Labs Checked ROS-No Headache, No Visual Changes, No Nausea, No Vomiting, + Fever, + Chills, No Neck Pain or Stiffness, No Chest Pain, Occas Palpitations, + SOB, + CARBAJAL, + Cough, No Sputum, No Wheezing, No Abdominal Pain, No Diarrhea, No Hematemesis, No Hemoptysis, No Unexpected Weight Loss, No Flank pain, No Melena, No Hematochezia, No Frequency, No Urgency, No Burning, No Hematuria, No Rashes, No Diaphoresis. Appetite is Normal Physical Exam Gen-AAO x 3, NAD, febrile, Less Bronchospastic, But had a coughing fit 1 hr before I saw her and she anxious from it, She looks better Head-NCAT, EOMI, PERRLA, Anicteric Sclera, No Posterior Pharyngeal Erythema Neck-Supple, No JVD, No Thyromegaly, No Masses, No LAD, No Bruits Lungs-Clear to Auscultation Bilaterally, No Rales, No Rhonchi, No Wheezing, No Crepitus Chest-No S4, +S1, +S2, No S3, No Murmurs, No Rubs, No Gallops, No Ectopy Abdomen-Soft, Bowel Sounds Present, Non Tender, Non Distended, No Hepatomegaly, No Splenomegaly, No Palpable Masses, No Rebound, No Rigidity, No Guarding Musculoskeletal-Full Range of Motion Bilaterally, No CVAT Extremities-No Cyanosis, No Clubbing, No Edema Nuero-Cranial Nerves II-XII grossly intact, Motor WNL, DTRs WNL, Strength WNL, Non Focal Psych-Normal Mood Admission and Anticipated Discharge Date Admission Date: August 31, 2020 Results & Data Results & Data ([facility]) Vital Signs (Past 12 Hours) Vital Signs Temp Pulse Pulse Resp BP Pulse Ox 09/02/20 07:38 37.2 C 90 18 116/80 96 09/02/20 04:41 38.0 C H 118 H 30 H 120/78 93 09/02/20 01:01 37.1 C 09/01/20 23:39 97 H 09/01/20 22:57 36.9 C 84 24 116/78 95 09/01/20 20:34 37 C 86 22 112/78 95 (1) Sepsis Sepsis acute organ dysfunction status: unspecified Sepsis type: sepsis due to unspecified organism Qualified Code(s): A41.9 - Sepsis, unspecified organism
[2020-09-02] MEDS: CHOLECALCIFEROL 1,000 UNITS 25 MCG TAB PO SCH (08:31)
[2020-09-02] MEDS: ASCORBIC ACID 500 MG TAB PO SCH (08:32)
[2020-09-02] MEDS: dexAMETHasone 6 MG in SYRINGE 0 ML IV SCH (08:34)
[2020-09-02] MEDS ORDERED: HYDROmorphone INJ 0.5 MG/0.5 ML SYR IV STA (09:47)
[2020-09-02] MEDS: POTASSIUM CHLORIDE CRTAB 20 MEQ TABCR PO SCH ×3 (09:55→19:41)
--- NOTE | 2020-09-02 10:26 | Pulmonology Progress Note ---
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 Positive for Covid 08/15/2020. Received outpatient steroids and antibiotics. Worsening of s ymptoms resulted in admission 08/31/2020. Patient received 2 doses of remdesivir. Started on dexamethasone 6 mg daily. Continues with cough, hypoxia, and fever. Nutritionally depleted. Recommendations: 1. COVID-19 infection: Discontinue remdesivir as patient was diagnosed 08/15/2020. We will continue dexamethasone 6 mg IV for total of 5 days and then convert to steroid taper. Blood cultures x2 are negative. Procalcitonin is negative. Received azithromycin and doxycycline as an outpatient. Now receiving azithromycin and ceftriaxone. In light of procalcitonin being negative would recommend discontinuing ceftriaxone. We will continue azithromycin until Legionella culture is resulted. Continue supportive care with oxygen supplementation to maintain SaO2 greater than 90%. 2. Multifocal pneumonia: There is most likely viral as patient's blood cultures are negative and procalcitonin has been negative. The patient has received a zithromycin, doxycycline, and ceftriaxone in the last 2 weeks. Most likely secondary to COVID-19 but could represent cryptogenic organizing pneumonia. Patient still requiring high levels of supplemental oxygen. Will start high flow oxygen to provide PEEP. Continue with incentive spirometry as tolerated. Continue supportive care for COVID-19. 3. Multiple sclerosis: Continue patient is immunologic. No indication for neurology consult at this time. Patient has been in contact with her outpatient neurologist. 4. Nutritional depletion: Albumin level 2.1. Will ask for nutritional assessment and start patient on [place] instant breakfast chocolate 3 times daily. Encourage protein intake with meals. 5. Diarrhea: Stool sample is negative for C. difficile. 6. Headache: Most likely associated with Covid 19 as well as cough. Patient currently ordered Tylenol, ibuprofen, and Toradol. Will discontinue ibuprofen at this time inasmuch as there seems to be some anecdotal evidence of increased GI bleed with COVID-19. We will do a trial of Dilaudid 0.25 mg IV. We will also continue to treat cough with Hycodan syrup and Robitussin. 7. GI prophylaxis: Patient has now been on steroids since 08/15/2020 and is currently receiving dexamethasone 6 mg IV daily. We will start patient on pantoprazole 40 mg p.o. twice daily. Discontinue ibuprofen. Patient did have a drop in hemoglobin of 3 g. We will check stool for guaiac/FOB. 8. DVT prophylaxis: Patient currently on enoxaparin (Lovenox) 40 mg SQ twice daily. Continue Thank you for including us in the care of this patient. We will continue to follow along with you. (2) Multifocal pneumonia: (3) Multiple sclerosis: (4) Headache: (5) DVT prophylaxis: Admission and Anticipated Discharge Date Admission Date: August 31, 2020 Supervising Physician Co-Signing Physician Notes Patient seen and examined. EMR reviewed. Discussed with off going siene maker and with pulmonary DAINA. The patient has transition to high flow nasal cannula and does feel somewhat better. I reviewed her CT scans and her radiograph definitely shows progression. Agree with prior assessments that this could represent the natural progression of Covid pneumonia but the consolidation appears fairly dense and organizing pneumonia would also be a possibility. This is a well described postinfectious phenomenon. Treatment for organizing pneumonia would be high- dose steroids and I would be somewhat reluctant to subject this patient to an empiric therapy without tissue confirmation. Bronchoscopy with transbronchial biopsies could be considered however this is oftentimes a difficult diagnosis to make based on the small sampling size of transbronchial biopsies. In addition the patient's respiratory status is somewhat tenuous. She would like to see how she does with conservative therapy. We will continue current dose of steroids for now and reassess with chest x-ray and assessment of oxygen requirement in the morning. If x-ray continues to progress or oxygen requirements continue to increase, we may consider bronchoscopy acknowledging that intubation mechanical ventilation may be necessary. If she is on positive pressure ventilation, the risk of pneumothorax associated with transbronchial biopsy is significant and may preclude a tissue diagnosis. Awaiting mycoplasma and Legionella serologies. [facility] and will defer additional antimicrobial agents to them. Subjective Attending: Dr. Beaulieu This is a 30-year-old female that was diagnosed with Covid 08/15/2020. She seemed to do well initially and actually returned to work but then had recurrence of symptoms. She has been trying to manage things at home and has had 2 prior outpatient visits for which she was treated with antibiotics as well as steroids. Initially she was placed on 2 mg of dexamethasone 4 times daily and doxycycline. At her ER visit 08/28/2020 she was placed on 20 mg of prednisone twice daily as well as azithromycin (Z-Lm) and cefdinir 300 mg p.o. twice daily for 7 days. Symptoms began to worsen including shortness of breath, dyspnea with exertion, and hypoxia. Patient then presented to the emergency department on 08/31/2020 and was admitted. She was started on dexamethasone 6 mg IV daily. She was also given remdesivir and received this for 2 days prior to it being discontinued today prior to administration. She is currently receiving azithromycin 500 mg IV daily and ceftriaxone 2 g IV daily. Procalcitonin is negative. Blood cultures x2 show no growth to date. UA is negative. Electrolytes are balanced. Albumin is low at 2.1 g/Didier. Patient has been started on [place] Instant Breakfast 3 times daily. It should be noted the patient does have multiple sclerosis and is receiving immunologic's in the form of ocrelizumab 600 mg IV. She has been in contact with her neurologist regarding Covid. Patient states that she continued with cough which is resulting dyspnea, tachycardia, hypoxia. She is currently using supplemental oxygen via nasal cannula and this has been needed to be increased to 15 L/min with ambulation. She still has some loose stool but no watery diarrhea. C. difficile was negative. She continues to have fever and some sweats. She denies any rigors. She has no pleuritic pain but does have some chest pain associated with cough. She has no nausea or vomiting. Review of Systems Review of Systems: All systems reviewed & are unremarkable except as noted in Subjective Physical Exam Physical Exam: GENERAL : No acute distress. Cough with conversation. Conversational dyspnea EYES: No icterus, gaze conjugate. No conjunctivitis or conjunctiva hemorrhage NOSE: No evidence of epistaxis. Nasal cannula in place MOUTH: No lesions or candidiasis. Mucosa is moist NECK: Supple LUNGS: CTA B/L, no wheezes, rales or rhonchi. Deep inspiration induces cough HEART: Regular, rate in the low 100s ABDOMEN: Soft, NT, ND, BS Present EXTREMITIES: No LE edema, pedal pulses intact and equal bilaterally NEURO: A&OX3. No focal neurological deficits appreciated for cranial nerves II through XII. Results & Data Results & Data ([facility]) Vital Signs (Past 12 Hours) Vital Signs Temp Pulse Pulse Resp BP Pulse Ox 09/02/20 07:38 37.2 C 90 18 116/80 96 09/02/20 04:41 38.0 C H 118 H 30 H 120/78 93 09/02/20 01:01 37.1 C 09/01/20 23:39 97 H 09/01/20 22:57 36.9 C 84 24 116/78 95 Laboratory Results 09/02/20 05:32 09/02/20 05:32 Diagnostic Findings XR chest 1V portable CLINICAL HISTORY: Worsening SOB COMPARISON STUDY: Chest radiograph and chest CT August 31, 2020. FINDINGS: There is no pneumothorax. There are small left and trace right pleural effusions. Extensive bilateral consolidation, greater within the left lung, has increased since prior exam of August 31, 2010. Cardiomediastinal silhouette is stable. IMPRESSION: 1. Reduction of extensive left lung consolidation and right lung multifocal airspace opacities. The findings represent an infectious process. 2. Small left and trace right pleural effusions. ACT 112: Negative or not required by law. Electronically signed by: Chris Rojas M.D. 09/02/2020 7:37 AM PG Care Time/CCT Total # of Minutes Spent Total Time Spent with Patient: Total time spent is greater than 50% in coordination of care (as documented) at patient's floor/unit and/or counseling patient:40 minutes Coding Level of Care Code 86554 Subseq Hosp Care Lvl 3 Diagnoses COVID-19 virus infection U07.1 Multifocal pneumonia J18.9 Multiple sclerosis G35 Headache R51.9 DVT prophylaxis Z29.9 Time Spent (min) 40
[2020-09-02] MEDS: PANTOprazole 40 MG TAB PO SCH ×2 (11:34→19:42)
[2020-09-02] MEDS: AZITHROMYCIN 500 MG in DEXTROSE 5% 250 ML IV SCH (15:54)
[2020-09-02] MEDS: DROSPIRENONE ETHINYL ESTRADIOL PO SCH (19:41)
[2020-09-02] MEDS: HYDROmorphone INJ 0.5 MG/0.5 ML SYR IV PRN (19:44)
[2020-09-03] MEDS: HYDROmorphone INJ 0.5 MG/0.5 ML SYR IV PRN ×6 (00:15→21:28)
[2020-09-03] MEDS: ACETAMINOPHEN 325 MG TAB PO PRN ×6 (00:15→21:29)
[2020-09-03] MEDS: HYDROcodone/HOMATROPINE SYRUP 5MG/1.5MG 5ML UDP PO PRN ×4 (02:00→21:28)
[2020-09-03] MEDS: BENZONATATE 100 MG CAPSULE PO PRN ×3 (04:15→21:32)
[2020-09-03] MEDS: ALBUTEROL HFA 8 GM INHALER INH PRN ×5 (04:15→20:00)
[2020-09-03] MEDS: guaiFENesin/DEXTROM SYRUP 200MG/20MG 10ML UDC PO SCH ×3 (06:12→21:28)
[2020-09-03] MEDS: ENOXAPARIN INJ 40 MG/0.4 ML SYR SQ SCH ×2 (06:12→18:05)
[2020-09-03 07:53] LABS: Basophils # (auto) 0.02 K/uL (0-0.2); Basophils % (auto) 0.2 %; Eosinophils # (auto) 0.01 K/uL (0-0.5); Eosinophils % (auto) 0.1 %; Hematocrit (blood only) 29.8 % (37-47); Hemoglobin 9.9 g/dL (12.0-16.0); Immature Granulocytes # (auto) 0.29 K/uL (0.00-0.02); Immature Granulocytes % (auto) 2.5 %; Lymphocytes # (auto) 1.94 K/uL (1.2-3.4); Lymphocytes % (auto) 16.8 %; Mean Corpuscular Hemoglobin 28.8 pg (25-34); Mean Corpuscular Hgb Conc 33.2 g/dL (32-36); Mean Corpuscular Volume 86.6 fL (80-100); Mean Platelet Volume 9.5 fL (7.4-10.4); Monocytes # (auto) 0.87 K/uL (0.11-0.59); Monocytes % (auto) 7.5 %; Neutrophils # (auto) 8.44 K/uL (1.4-6.5); Neutrophils % (auto) 72.9 %; Platelet Count 464 K/uL (130-400); RDW Coefficient of Variation 13.2 % (11.5-14.5); RDW Standard Deviation 42.3 fL (36.4-46.3); Red Blood Count 3.44 M/uL (4.2-5.4); White Blood Count 11.57 K/uL (4.8-10.8)
[2020-09-03 08:09] LABS: Alanine Aminotransferase 45 U/L (12-78); Albumin Level 2.3 gm/dl (3.4-5.0); Aspartate Aminotransferase 44 U/L (15-37); Blood Urea Nitrogen 7 mg/dl (7-18); Carbon Dioxide 28 mmol/L (21-32); Chloride 103 mmol/L (98-107); Creatinine Clr Calc Pharmacy 154.3 ml/min; Est GFR (African American) > 150.0; Est GFR (Non-African American) 133.5; Glucose 85 mg/dl (70-99); Potassium 3.9 mmol/L (3.5-5.1); Sodium 138 mmol/L (136-145)
[2020-09-03 08:12] LABS: Albumin Globulin Ratio 0.6 (0.9-2); Alkaline Phosphatase 83 U/L (45-117); Bilirubin,Total 0.2 mg/dl (0.2-1); Globulin 4.1 gm/dl (2.5-4.0); Total Protein 6.4 gm/dl (6.4-8.2)
[2020-09-03] MEDS: POTASSIUM CHLORIDE CRTAB 20 MEQ TABCR PO SCH ×3 (08:16→21:27)
[2020-09-03] MEDS: CHOLECALCIFEROL 1,000 UNITS 25 MCG TAB PO SCH (08:17)
[2020-09-03] MEDS: ASCORBIC ACID 500 MG TAB PO SCH (08:17)
[2020-09-03] MEDS: PANTOprazole 40 MG TAB PO SCH ×2 (08:18→21:28)
[2020-09-03] MEDS: DROSPIRENONE ETHINYL ESTRADIOL PO SCH (08:18)
[2020-09-03] MEDS: dexAMETHasone 6 MG in SYRINGE 0 ML IV SCH (08:27)
--- NOTE | 2020-09-03 08:57 | XRay Report ---
XR chest 1V portable CLINICAL HISTORY: Hypoxia, COVID positive COMPARISON STUDY: 09/02/2020 FINDINGS: The cardiac and mediastinal contours remain stable. There are bilateral pulmonary airspace opacities, minimally improved when compared the prior study. The findings are consistent with a multi focal pneumonia.[Trace pleural effusions are suspected IMPRESSION: Multifocal pulmonary airspace opacities consistent with a multifocal pneumonia, slightly improved when compared with the preceding study ACT 112: Negative or not required by law. Electronically signed by: Sotero Martin M.D. 09/03/2020 8:56 AM
--- NOTE | 2020-09-03 09:23 | Hospitalist Progress Note ---
Date of Service September 03, 2020 Assessment & Plan (1) Sepsis: (2) Multifocal pneumonia: (3) COVID-19 virus infection: This is a 30-year-old female with history of multiple sclerosis and Covid who presents with continued fevers and shortness of breath and was found to have multifocal pneumonia. -Covid positive on 08/15, has completed 10-day course of steroids in outpatient setting followed and doxycycline for bilateral PNA on CXR 08/26, switched to azithromycin and cefdinir on 08/28, started on prednisone 20mg BID -Returns to ED 08/31 after fever of 103.1 F with pulse ox ranging from 87-89% at home -Meets sepsis criteria with tachycardia, tachypnea, leukocytosis (steroids likely contributing) and lactic acid of 2.3 Procalcitonin normal -Chest CTA with extensive bilateral alveolar opacities have progressively worsened from 08/28/2020 compatible with multifocal pneumonia and small pleural effusions. No evidence of pulmonary embolism -Pneumonia likely viral but concern for superimposed bacterial pna. Blood cx pending. Trend lactic acid. Continue empiric abx of Rocephin and Azithromycin for now. -IV dexamethasone, IV Remdesivir, supplemental O2, proning as needed, ventolin inhaler, antipyretics, Hycodan, Tesselon perles -Pulmonology on case Mild Improvement on CXR WBCs down to 11.57 (4) Hypokalemia: Initial K 3.4 - replaced. Monitor with daily BMP, K 20 meq PO TID (5) Multiple sclerosis: [facility]. Gets Ocrevus infusions q6M, due in October -Holding armodafinil for now DVT Ppx: SQ Lovenox 40 Q12 Code status: FULL PCP: Chris Dispo: Continue PCU Labs Checked ROS-No Headache, No Visual Changes, No Nausea, No Vomiting, + Fever, + Chills, No Neck Pain or Stiffness, No Chest Pain, Occas Palpitations, + SOB, + CARBAJAL, + Cough, No Sputum, No Wheezing, No Abdominal Pain, No Diarrhea, No Hematemesis, No Hemoptysis, No Unexpected Weight Loss, No Flank pain, No Melena, No Hematochezia, No Frequency, No Urgency, No Burning, No Hematuria, No Rashes, No Diaphoresis. Appetite is Normal Physical Exam Gen-AAO x 3, NAD, febrile, Less Bronchospastic, But had a coughing fit 1 hr before I saw her and she anxious from it, She looks better Head-NCAT, EOMI, PERRLA, Anicteric Sclera, No Posterior Pharyngeal Erythema Neck-Supple, No JVD, No Thyromegaly, No Masses, No LAD, No Bruits Lungs-Clear to Auscultation Bilaterally, No Rales, No Rhonchi, No Wheezing, No Crepitus Chest-No S4, +S1, +S2, No S3, No Murmurs, No Rubs, No Gallops, No Ectopy Abdomen-Soft, Bowel Sounds Present, Non Tender, Non Distended, No Hepatomegaly, No Splenomegaly, No Palpable Masses, No Rebound, No Rigidity, No Guarding Musculoskeletal-Full Range of Motion Bilaterally, No CVAT Extremities-No Cyanosis, No Clubbing, No Edema Nuero-Cranial Nerves II-XII grossly intact, Motor WNL, DTRs WNL, Strength WNL, Non Focal Psych-Normal Mood Admission and Anticipated Discharge Date Admission Date: August 31, 2020 Subjective Attending: Dr. Beaulieu This is a 30-year-old female that was diagnosed with Covid 08/15/2020. She seemed to do well initially and actually returned to work but then had recurrence of symptoms. She has been trying to manage things at home and has had 2 prior outpatient visits for which she was treated with antibiotics as well as steroids. Initially she was placed on 2 mg of dexamethasone 4 times daily and doxycycline. At her ER visit 08/28/2020 she was placed on 20 mg of prednisone twice daily as well as azithromycin (Z-Lm) and cefdinir 300 mg p.o. twice daily for 7 days. Symptoms began to worsen including shortness of breath, dyspnea with exertion, and hypoxia. Patient then presented to the emergency department on 08/31/2020 and was admitted. She was started on dexamethasone 6 mg IV daily. She was also given remdesivir and received this for 2 days prior to it being discontinued today prior to administration. She is currently receiving azithromycin 500 mg IV daily and ceftriaxone 2 g IV daily. Procalcitonin is negative. Blood cultures x2 show no growth to date. UA is negative. Electrolytes are balanced. Albumin is low at 2.1 g/Didier. Patient has been started on [place] Instant Breakfast 3 times daily. It should be noted the patient does have multiple sclerosis and is receiving immunologic's in the form of ocrelizumab 600 mg IV. She has been in contact with her neurologist regarding Covid. Patient states that she continued with cough which is resulting dyspnea, tachycardia, hypoxia. She is currently using supplemental oxygen via nasal cannula and this has been needed to be increased to 15 L/min with ambulation. She still has some loose stool but no watery diarrhea. C. difficile was negative. She continues to have fever and some sweats. She denies any rigors. She has no pleuritic pain but does have some chest pain associated with cough. She has no nausea or vomiting. Results & Data Results & Data ([facility]) Vital Signs (Past 12 Hours) Vital Signs Temp Pulse Resp BP Pulse Ox 09/03/20 09:05 37.3 C 90 16 120/85 97 09/03/20 07:56 74 16 97 09/03/20 03:52 37.1 C 71 20 114/78 97 09/03/20 03:17 60 20 97 09/03/20 00:23 36.8 C 85 24 112/80 93 09/02/20 22:56 59 L 18 98 (1) Sepsis Sepsis acute organ dysfunction status: unspecified Sepsis type: sepsis due to unspecified organism Qualified Code(s): A41.9 - Sepsis, unspecified organism
--- NOTE | 2020-09-03 09:45 | Pulmonology Progress Note ---
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 Positive for Covid 08/15/2020. Received outpatient steroids and antibiotics. Worsening of s ymptoms resulted in admission 08/31/2020. Patient received 2 doses of remdesivir. Started on dexamethasone 6 mg daily. Continues with cough, hypoxia, and fever. Nutritionally depleted. Recommendations: 1. COVID-19 infection: Discontinue remdesivir as patient was diagnosed 08/15/2020. We will continue dexamethasone 6 mg IV for total of 5 days and then convert to steroid taper. Blood cultures x2 are negative. Procalcitonin is negative. Received azithromycin and doxycycline as an outpatient. Now receiving azithromycin and ceftriaxone. In light of procalcitonin being negative would recommend discontinuing ceftriaxone. We will continue azithromycin until Legionella culture is resulted. Continue supportive care with oxygen supplementation to maintain SaO2 greater than 90%. 2. Multifocal pneumonia: There is most likely viral as patient's blood cultures are negative and procalcitonin has been negative. The patient has received a zithromycin, doxycycline, and ceftriaxone in the last 2 weeks. Most likely secondary to COVID-19 but could represent cryptogenic organizing pneumonia. Patient still requiring high levels of supplemental oxygen. Will start high flow oxygen to provide PEEP. Continue with incentive spirometry as tolerated. Continue supportive care for COVID-19. 3. Multiple sclerosis: Continue patient is immunologic. No indication for neurology consult at this time. Patient has been in contact with her outpatient neurologist. 4. Nutritional depletion: Albumin level 2.1. Will ask for nutritional assessment and start patient on [place] instant breakfast chocolate 3 times daily. Encourage protein intake with meals. 5. Diarrhea: Stool sample is negative for C. difficile. 6. Headache: Most likely associated with Covid 19 as well as cough. Patient currently ordered Tylenol, ibuprofen, and Toradol. Will discontinue ibuprofen at this time inasmuch as there seems to be some anecdotal evidence of increased GI bleed with COVID-19. We will do a trial of Dilaudid 0.25 mg IV. We will also continue to treat cough with Hycodan syrup and Robitussin. 7. GI prophylaxis: Patient has now been on steroids since 08/15/2020 and is currently receiving dexamethasone 6 mg IV daily. We will start patient on pantoprazole 40 mg p.o. twice daily. Discontinue ibuprofen. Patient did have a drop in hemoglobin of 3 g. We will check stool for guaiac/FOB. 8. DVT prophylaxis: Patient currently on enoxaparin (Lovenox) 40 mg SQ twice daily. Continue Thank you for including us in the care of this patient. We will continue to follow along with you. (2) Multifocal pneumonia: CT chest 08/31/2020 personally reviewed: Diffuse bilateral dense consolidative process appreciated affecting upper and lower lobes with air bronchograms. Mild mediastinal lymphadenopathy is also appreciated likely reactive. Small bilateral pleural effusions. --Acute hypoxic respiratory failure Secondary to multilobar pneumonia due to Covid 19 although this has very dense consolidation with air bronchograms Procalcitonin 0.06, CRP 12.3, ESR 35 Nasal MRSA negative Patient was diagnosed with COVID-19 on 08/15/2020 She has completed the course of steroids and outpatient as well as an antibiotic course of doxycycline as well as azithromycin Incentive spirometry with mucolytic Given the dense consolidation appreciated I would continue with antibiotic coverage for at least 5 days. With the supplementation to keep oxygen saturation greater than 90% --History of multiple sclerosis On Ocrelizumab anti-CD 20 Plan: Given that patient was diagnosed with COVID-19 on 08/15/2020, I do not think remdesivir would have any prognostic benefit. Agree with antibiotics given that she is almost 2 weeks out from initial presentation. Given the dense consolidative process MAINTENANCE COORDINATOR (which has been seen in patients with COVID-19) is also a possibility. Would continue with dexamethasone for no more than 5 days followed by gradual taper. Follow mycoplasma and Legionella antibodies as well as influenza A and B Please note the above document was generated using voice recognition software. It may contain grammatical, syntax or spelling errors.Any formal questions or concerns about the content, text or information contained within the body of this dictation should be directly addressed to the provider for clarification. (3) Multiple sclerosis: (4) Headache: (5) DVT prophylaxis: Admission and Anticipated Discharge Date Admission Date: August 31, 2020 Subjective Attending: Dr. Beaulieu Patient seen and examined on the Covid unit in room 218-1. Patient was afebrile overnight but is taking Tylenol scheduled ATC. She is feeling better overall and feels like her respiratory status is improving. She does continue with a nonproductive cough. She seems to be doing much better with the high flow oxygen (Vapotherm) as compared to the high flow nasal cannula. Oxygenation is adequate with the supplemental O2. Patient continues to have some chest discomfort with cough. Otherwise, no chest pain or tightness. Stools are less frequent. They are now not watery. She is tolerating diet. She also was able to self prone last night and continues to self prone as needed during the day. She has no new acute complaints. Review of Systems Review of Systems: All systems reviewed & are unremarkable except as noted in Subjective Physical Exam Physical Exam: GENERAL : No acute distress EYES: No icterus, gaze conjugate NOSE: No evidence of epistaxis MOUTH: No lesions or candidiasis NECK: Supple LUNGS: Breath sounds appear to be more diminished at the bases today. Otherwise, good inspiratory effort and clear to auscultation bilaterally. HEART: Regular, rate is now better controlled at 74. ABDOMEN: Soft, NT, ND, BS Present EXTREMITIES: No LE edema, pedal pulses intact NEURO: A&OX3 Results & Data Results & Data ([facility]) Vital Signs (Past 12 Hours) Vital Signs Temp Pulse Resp BP Pulse Ox 09/03/20 09:05 37.3 C 90 16 120/85 97 09/03/20 07:56 74 16 97 09/03/20 03:52 37.1 C 71 20 114/78 97 09/03/20 03:17 60 20 97 09/03/20 00:23 36.8 C 85 24 112/80 93 09/02/20 22:56 59 L 18 98 Laboratory Results 09/03/20 06:58 09/03/20 06:58 Diagnostic Findings XR chest 1V portable CLINICAL HISTORY: Hypoxia, COVID positive COMPARISON STUDY: 09/02/2020 FINDINGS: The cardiac and mediastinal contours remain stable. There are bilateral pulmonary airspace opacities, minimally improved when compared the prior study. The findings are consistent with a multifocal pneumonia.[Trace pleural effusions are suspected IMPRESSION: Multifocal pulmonary airspace opacities consistent with a multifocal pneumonia, slightly improved when compared with the preceding study Electronically signed by: Sotero Martin M.D. 09/03/2020 8:56 AM PG Care Time/CCT Total # of Minutes Spent Total Time Spent with Patient: Total time spent is greater than 50% in coordination of care (as documented) at patient's floor/unit and/or counseling patient: Coding Diagnoses COVID-19 virus infection U07.1 Multifocal pneumonia J18.9 Multiple sclerosis G35 Headache R51.9 DVT prophylaxis Z29.9
[2020-09-03] MEDS: ADVANCED PROBIOTIC 1250 MG CAPSULE PO SCH (13:46)
[2020-09-03] MEDS ORDERED: ZINC SULFATE 220 MG CAPSULE PO SCH (14:00)
--- NOTE | 2020-09-03 15:40 | Pulmonology Progress Note ---
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 Received outpatient steroids and antibiotics. Worsening of s ymptoms resulted in admission 08/31/2020. Patient received 2 doses of remdesivir. Started on dexamethasone 6 mg daily. Continues with cough, hypoxia, and fever. Nutritionally depleted. Recommendations: 1. COVID-19 infection: We will continue dexamethasone 6 mg IV for total of 5 days and then convert to steroid taper. Blood cultures x2 are negative. Procalcitonin is negative. ID consultation has been obtained and will defer additional antibiotics to infectious disease. Continue supplemental oxygen titrated to keep saturations at or above 88%. There is no role for zinc supplementation so this will be discontinued. 2. Multifocal airspace opacity: Unclear if this represents post viral changes or potential multifocal organizing pneumonia which could be post viral as well. Nevertheless she appears clinically improved with steroids. We had discussed options for proceeding with bronchoscopy with transbronchial biopsies to see whether or not we could find organizing pneumonia however given her clinical i mprovement with steroids I would favor continuing the clinical course and following how she does. Escalated doses of Decadron (20 mg x 5 days followed by 10 mg x 5 days) may be considered depending on the clinical response. This is a late phase fibroproliferative ARDS dosing strategy. 3. Cough: Continue supportive care. This is secondary to the patient's underlying parenchymal process. Tussionex cough syrup appears to be effective. Can continue Tessalon as needed. Management of the patient's other medical issues is deferred to the patient's primary admitting service. We will continue to follow with you (2) Multiple sclerosis: (3) Headache: (4) DVT prophylaxis: Admission and Anticipated Discharge Date Admission Date: August 31, 2020 Subjective Patient seen and examined. EMR reviewed. She states she is feeling somewhat better. She definitely does better on the high flow. She spent the majority of the evening in the prone position and thinks this was beneficial. She continues to cough and experience shortness of breath with any significant physical activity but is able to eat and definitely feels better on the heated high flow. No chest pain or palpitations. No nausea vomiting or other new complaints. Review of Systems Review of Systems: All systems reviewed & are unremarkable except as noted in HPI & below Physical Exam Constitutional: well developed; not ill appearing Neck: trachea midline, no thyromegaly Respiratory: + labored breathing Auscultation: + crackles and + wheezes Cardiovascular: RRR, no murmur, no edema Gastrointestinal (Abdomen): normal bowel sounds, soft, nontender, no hepatosplenomegaly Musculoskeletal: Extremities: extremities normal to inspection Skin: no rashes, warm and dry Neurologic: Nonfocal exam Lymphatic: no cervical lymphadenopathy Results & Data Results & Data ([facility]) Vital Signs (Past 12 Hours) Vital Signs Temp Pulse Resp BP Pulse Ox 09/03/20 11:57 37.1 C 96 H 18 116/78 97 09/03/20 11:36 88 16 95 09/03/20 09:05 37.3 C 90 16 120/85 97 09/03/20 07:56 74 16 97 09/03/20 03:52 37.1 C 71 20 114/78 97 Laboratory Results 09/03/20 06:58 09/03/20 06:58 Diagnostic Findings Chest x-ray today was independently reviewed and compared to prior film from yesterday. There has been some clearing specifically within the right upper lobe and left lung base. There are persistent bilateral infiltrates. PG Care Time/CCT Total # of Minutes Spent Total Time Spent with Patient: Total time spent is greater than 50% in coordination of care (as documented) at patient's floor/unit and/or counseling patient: Coding Level of Care Code 26412 Subseq Hosp Care Lvl 2 Diagnoses COVID-19 virus infection U07.1 Multiple sclerosis G35 Headache R51.9 DVT prophylaxis Z29.9
[2020-09-04] MEDS: ALBUTEROL HFA 8 GM INHALER INH PRN (00:01)
[2020-09-04] MEDS: HYDROmorphone INJ 0.5 MG/0.5 ML SYR IV PRN ×3 (01:40→09:24)
[2020-09-04] MEDS: ACETAMINOPHEN 325 MG TAB PO PRN ×2 (01:41→05:30)
[2020-09-04] MEDS: HYDROcodone/HOMATROPINE SYRUP 5MG/1.5MG 5ML UDP PO PRN ×3 (03:30→16:08)
[2020-09-04] MEDS: ENOXAPARIN INJ 40 MG/0.4 ML SYR SQ SCH ×2 (05:31→17:15)
[2020-09-04] MEDS: guaiFENesin/DEXTROM SYRUP 200MG/20MG 10ML UDC PO SCH ×3 (05:32→22:15)
[2020-09-04] MEDS: ADVANCED PROBIOTIC 1250 MG CAPSULE PO SCH (08:05)
[2020-09-04] MEDS: DROSPIRENONE ETHINYL ESTRADIOL PO SCH (08:05)
[2020-09-04] MEDS: CHOLECALCIFEROL 1,000 UNITS 25 MCG TAB PO SCH (08:05)
[2020-09-04] MEDS: ASCORBIC ACID 500 MG TAB PO SCH (08:06)
[2020-09-04] MEDS: dexAMETHasone 6 MG in SYRINGE 0 ML IV SCH (08:06)
[2020-09-04] MEDS: POTASSIUM CHLORIDE CRTAB 20 MEQ TABCR PO SCH ×3 (08:06→20:25)
[2020-09-04] MEDS: PANTOprazole 40 MG TAB PO SCH ×2 (08:06→20:26)
[2020-09-04] MEDS: BENZONATATE 100 MG CAPSULE PO PRN ×2 (08:21→20:25)
[2020-09-04 08:34] LABS: Hemoglobin 11.1 g/dL (12.0-16.0); Mean Corpuscular Hemoglobin 28.5 pg (25-34); Mean Corpuscular Hgb Conc 32.6 g/dL (32-36); Mean Corpuscular Volume 87.2 fL (80-100); Mean Platelet Volume 9.5 fL (7.4-10.4); Platelet Count 539 K/uL (130-400); RDW Standard Deviation 41.6 fL (36.4-46.3); White Blood Count 12.41 K/uL (4.8-10.8)
[2020-09-04 09:00] LABS: BUN Creatinine Ratio 20.9 (10-20); Blood Urea Nitrogen 9 mg/dl (7-18); Calcium 9.9 mg/dl (8.5-10.1); Carbon Dioxide 29 mmol/L (21-32); Chloride 98 mmol/L (98-107); Creatinine Clr Calc Pharmacy 169.5 ml/min; Est GFR (African American) > 150.0; Est GFR (Non-African American) 138.4; Glucose 76 mg/dl (70-99); Potassium 4.3 mmol/L (3.5-5.1); Sodium 136 mmol/L (136-145)
--- NOTE | 2020-09-04 10:31 | XRay Report ---
XR chest 1V portable CLINICAL HISTORY: Hypoxia, COVID + COMPARISON STUDY: Chest CT August 31, 2020. Chest radiograph September 03, 2020. FINDINGS: Small left pleural effusion is noted. There is no pneumothorax. Cardiomediastinal silhouett e is normal. Extensive left lung consolidation is present. Left lung aeration has slightly improved. Multifocal right lung airspace opacities are similar to prior exam. IMPRESSION: 1. Slight improvement in extensive left lung consolidation. No change in multifocal right lung airspa ce opacities consistent with an infectious process. 2. Small left pleural effusion. ACT 112: Negative or not required by law. Electronically signed by: Chris Rojas M.D. 09/04/2020 10:29 AM
--- NOTE | 2020-09-04 11:38 | Pulmonology Progress Note ---
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 Received outpatient steroids and antibiotics. Worsening of s ymptoms resulted in admission 08/31/2020. Patient received 2 doses of remdesivir. Started on dexamethasone 6 mg daily. Continues with cough, hypoxia, and fever. Nutritionally depleted. Recommendations: 1. COVID-19 infection: Patient is generally improved over the last 2 days. However there is still concern for possibility of cryptogenic organizing pneumonia. We will discontinue dexamethasone and start prednisone 40 mg p.o. daily until seen in the outpatient pulmonary clinic. Blood cultures x2 are negative. Procalcitonin is negative. ID consultation has been obtained. Their input appreciated. Will start empiric Bactrim 3 times weekly until seen in the outpatient office. Continue supplemental oxygen titrated to keep saturations at or above 88%. Zinc supplementation has been discontinued. 2. Multifocal airspace opacity: Unclear if this represents post viral changes or potential multifocal organizing pneumonia which could be post viral as well. Nevertheless she appears clinically improved with steroids. We had discussed options for proceeding with bronchoscopy with transbronchial biopsies to see whether or not we could find organizing pneumonia however given her clinical improvement with steroids I would favor continuing the clinical course and following how she does. We will start prednisone 40 mg p.o. daily until seen in the outpatient office. We will also start Bactrim 3 times weekly prophylactically. Will need CXR in [address] Chest w/o contrast in six weeks to ensure resolution. 3. Cough: Continue supportive care. This is secondary to the patient's underlying parenchymal process. Tussionex cough syrup appears to be effective. Can continue Tessalon as needed. Also using Hycodan syrup. Will trial Codeine Management of the patient's other medical issues is deferred to the patient's primary admitting service. Thank you for including us in the care of this patient. We will continue to follow. Will also schedule an outpatient follow up with pulmonology (2) Multiple sclerosis: (3) Headache: (4) DVT prophylaxis: Admission and Anticipated Discharge Date Admission Date: August 31, 2020 Supervising Physician Co-Signing Physician Notes Seen and examined. Discussed with critical care DAINA, patient, and patient's mother at bedside. She is clinically improved on current therapy and her oxygenation is improved with decreasing oxygen requirement. This could be consistent with organizing pneumonia although we do not have a definitive tissue diagnosis. At this point time I would favor continued steroid therapy but transition to prednisone 40 mg a day with Bactrim prophylaxis. She should continue this for about 4 weeks and then follow-up in pulmonary clinic with a repeat chest x-ray. If the x-ray shows continued regression/resolution of the airspace opacities, a gradual prednisone taper could be considered with plans to follow-up CT scan in 2 to 3months. Should the patient's disease progress or fail to improve, could consider bronchoscopy for tissue diagnosis at that point time. Discussed with patient and with pulmonary DAINA. Agree with assessment and plan as noted by pulmonary DAINA Subjective Attending: Dr. Beaulieu Patient with continued slight improvement with symptoms. CXR today with slight improvement as well. Right pleural effusion resolved. Left pleural effusion improved. Last fever 09/02/2020 at 04:41 am. No further sweats. Continues with non-productive cough but seems improved. No nausea or vomiting. No new acute complaints. Mother updated at the request of the patient. Review of Systems Review of Systems: All systems reviewed & are unremarkable except as noted in Subjective Physical Exam Physical Exam: GENERAL : No acute distress EYES: No icterus, gaze conjugate NOSE: No evidence of epistaxis MOUTH: No lesions or candidiasis. Mucosa moist NECK: Supple LUNGS: Patient continues to be tachypneic with respiratory rate between 24 and 26 bpm. Generally CTA B/L, no wheezes, rales or rhonchi. Breath sounds are less decreased today as compared to yesterday. HEART: Regular, rate controlled at rest. In the low 100s with any exertion and with deep breathing ABDOMEN: Soft, NT, ND, BS Present EXTREMITIES: No LE edema, pedal pulses intact and equal bilaterally NEURO: A&OX3 Results & Data Results & Data ([facility]) Vital Signs (Past 12 Hours) Vital Signs Temp Pulse Pulse Resp BP Pulse Ox 09/04/20 10:43 69 17 98 09/04/20 10:07 76 09/04/20 08:21 36.8 C 88 24 110/75 95 09/04/20 07:42 99 H 20 95 09/04/20 04:18 58 L 18 97 09/04/20 03:28 36.8 C 78 22 108/73 94 09/04/20 01:39 37.0 C 87 22 110/75 97 09/03/20 23:46 57 L 16 95 Laboratory Results No new labs today Diagnostic Findings XR chest 1V portable CLINICAL HISTORY: Hypoxia, COVID + COMPARISON STUDY: Chest CT August 31, 2020. Chest radiograph September 03, 2020. FINDINGS: Small left pleural effusion is noted. There is no pneumothorax. Cardiomediastinal silhouette is normal. Extensive left lung consolidation is present. Left lung aeration has slightly improved. Multifocal right lung airspace opacities are similar to prior exam. IMPRESSION: 1. Slight improvement in extensive left lung consolidation. No change in multifocal right lung airspace opacities consistent with an infectious process. 2. Small left pleural effusion. ACT 112: Negative or not required by law. Electronically signed by: Chris Rojas M.D. 09/04/2020 10:29 AM PG Care Time/CCT Total # of Minutes Spent Total Time Spent with Patient: Total time spent is greater than 50% in coordination of care (as documented) at patient's floor/unit and/or counseling patient: Coding Level of Care Code 94443 Subseq Hosp Care Lvl 3 Diagnoses COVID-19 virus infection U07.1 Multiple sclerosis G35 Headache R51.9 DVT prophylaxis Z29.9
[2020-09-04] MEDS ORDERED: CODEINE SULFATE 30 MG TAB PO PRN (13:20)
[2020-09-04] MEDS: SULFAMETHOXAZOLE/TRIMETHOPRIM DS 800/160MG TAB PO SCH (15:15)
--- NOTE | 2020-09-04 19:16 | Hospitalist Progress Note ---
Date of Service September 04, 2020 Assessment & Plan (1) Sepsis: (2) Multifocal pneumonia: (3) COVID-19 virus infection: Present on admission with fevers and worsening SOB Covid positive on 08/15, has completed 10-day course of steroids in outpatient setting followed and doxycycline for bilateral PNA on CXR 08/26, switched to azithromycin and cefdinir on 08/28, started on prednisone 20mg BID Returns to ED 08/31 after fever of 103.1 F with pulse ox ranging from 87-89% at home Meets sepsis criteria with tachycardia, tachypnea, leukocytosis (steroids likely contributing) and lactic acid of 2.3 Procalcitonin normal Chest CTA with extensive bilateral alveolar opacities have progressively worsened from 08/28/2020 compatible with multifocal pneumonia and small pleural effusions. No evidence of pulmonary embolism Pneumonia likely viral but concern for superimposed bacterial pna. Blood cx no growth Rocephin and Azithromycin discontinued and started on Bactrim Mon/Wed/Wed Pulm on board Received 2 days Remdesivir, then discontinue IV dexamethasone was discontinued and transition to Prednisone 40mg daily and continue until outpatient follow up with Pulm Continue encourage pt to prone Continue oxygen supplement (4) Hypokalemia: Potassium 4.3 today On Potassium supplement 20mg TID Will consider to discontinue K if elevates Monitor BMP (5) Multiple sclerosis: Follows with [facility] neuro. Gets Ocrevus infusions q6M, due in October Continue to hold armodafinil DVT Ppx: SQ Lovenox 40 Q1 Code status: FULL Dispo: Will discharge once medical stable Admission and Anticipated Discharge Date Admission Date: August 31, 2020 Subjective Pt was seen and examined for follow up of respiratory failure due to COVID 19 Sitting in bed with no distress Pt said that she feels a little better today compare to the last few days Pt said that she walked today in the hallway She was transition form high flow oxygen to NC today She said that she continues to have difficulty to get her phlegm out Denies any chest pain, palpitation, dizziness and fever Physical Exam Physical Exam: General- No acute distress Head- atraumatic Eyes- PERRL, EOMI, ENT- oropharynx clear Neck- supple, no JVD Lungs- No wheezing, diminished BS Heart- regular rhythm; no murmur Abdomen- normal bowel sounds, soft, nontender Extremities- no calf tenderness Neuro- alert, oriented x 3; PERRL, EOMI; no facial palsy; no dysarthria Skin- warm & dry Results & Data Results & Data ([facility]) Vital Signs (Past 12 Hours) Vital Signs Temp Pulse Pulse Resp BP Pulse Ox 09/04/20 15:58 37.1 C 97 H 18 116/77 97 09/04/20 12:39 36.6 C 85 22 106/73 98 09/04/20 10:43 69 17 98 09/04/20 10:07 76 09/04/20 08:21 36.8 C 88 24 110/75 95 09/04/20 07:42 99 H 20 95 (1) Sepsis Sepsis acute organ dysfunction status: unspecified Sepsis type: sepsis due to unspecified organism Qualified Code(s): A41.9 - Sepsis, unspecified organism
[2020-09-04] MEDS: CODEINE SULFATE 30 MG TAB PO PRN (20:25)
[2020-09-05] MEDS ORDERED: diphenhydrAMINE Capsule 25 MG CAP PO ONE (02:11)
[2020-09-05] MEDS ORDERED: FLUCONAZOLE 50 MG TAB PO ONE (02:13)
[2020-09-05] MEDS: HYDROcodone/HOMATROPINE SYRUP 5MG/1.5MG 5ML UDP PO PRN ×3 (03:35→21:28)
[2020-09-05] MEDS: ENOXAPARIN INJ 40 MG/0.4 ML SYR SQ SCH ×2 (06:07→17:18)
[2020-09-05] MEDS: guaiFENesin/DEXTROM SYRUP 200MG/20MG 10ML UDC PO SCH ×3 (06:09→21:28)
[2020-09-05 08:21] LABS: Hematocrit (blood only) 36.2 % (37-47); Mean Corpuscular Hemoglobin 28.8 pg (25-34); Mean Corpuscular Hgb Conc 33.1 g/dL (32-36); Mean Corpuscular Volume 86.8 fL (80-100); Mean Platelet Volume 9.5 fL (7.4-10.4); Platelet Count 586 K/uL (130-400); RDW Standard Deviation 41.6 fL (36.4-46.3); Red Blood Count 4.17 M/uL (4.2-5.4); White Blood Count 13.49 K/uL (4.8-10.8)
[2020-09-05 08:57] LABS: BUN Creatinine Ratio 20.2 (10-20); Creatinine Clr Calc Pharmacy 107.9 ml/min; Est GFR (African American) 138.6; Est GFR (Non-African American) 119.6; Potassium 4.4 mmol/L (3.5-5.1)
[2020-09-05] MEDS: PANTOprazole 40 MG TAB PO SCH ×2 (09:28→21:28)
[2020-09-05] MEDS: POTASSIUM CHLORIDE CRTAB 20 MEQ TABCR PO SCH ×3 (09:28→20:19)
[2020-09-05] MEDS: CHOLECALCIFEROL 1,000 UNITS 25 MCG TAB PO SCH (09:28)
[2020-09-05] MEDS: ASCORBIC ACID 500 MG TAB PO SCH (09:28)
[2020-09-05] MEDS: predniSONE 20 MG TAB PO SCH (09:29)
[2020-09-05] MEDS: DROSPIRENONE ETHINYL ESTRADIOL PO SCH (09:29)
[2020-09-05] MEDS: ADVANCED PROBIOTIC 1250 MG CAPSULE PO SCH (09:29)
[2020-09-05] MEDS: CODEINE SULFATE 30 MG TAB PO PRN (09:38)
--- NOTE | 2020-09-05 11:16 | Pulmonology Progress Note ---
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 Positive for Covid 08/15/2020. Received outpatient steroids and antibiotics. Worsening of s ymptoms resulted in admission 08/31/2020. Patient received 2 doses of remdesivir. Started on dexamethasone 6 mg daily. Continues with cough, hypoxia, and fever. Nutritionally depleted. Recommendations: 1. COVID-19 infection: Patient is generally improved over the last 2 days. However there is still concern for possibility of cryptogenic organizing pneumonia. Continue prednisone 40 mg a day with Bactrim prophylaxis. Unclear if the rash she had yesterday was related to Bactrim. We will see if it recurs after the dose tomorrow. If so, will need to pursue alternative P FELA prophylaxis. 2. Multifocal airspace opacity: Unclear if this represents post viral changes or potential multifocal organizing pneumonia which could be post viral as well. Continue prednisone until 4-week follow-up in the pulmonary clinic with repeat chest x-ray. Will likely require repeat CT scan in several months. 3. Cough: Continue supportive care. This is secondary to the patient's underlying parenchymal process. Tussionex cough syrup appears to be effective. Can continue Tessalon as needed. Also using Hycodan syrup. She feels that hydrocodone is more beneficial than the codeine pills. 4. Hypoxemic respiratory failure: Secondary to underlying pulmonary process. The patient may well require supplemental oxygen at discharge. Management of the patient's other medical issues is deferred to the patient's primary admitting service. Thank you for including us in the care of this patient. We will continue to follow. Will also arrange an outpatient follow up with pulmonology (2) Multiple sclerosis: (3) Headache: (4) DVT prophylaxis: Admission and Anticipated Discharge Date Admission Date: August 31, 2020 Subjective Patient seen and examined. EMR reviewed. She was seen just after getting up to brush her teeth this morning and was significantly tachycardic up into the 150s. Her oxygen saturation remained in the 90s on nasal cannula however the patient did have increased work of breathing and was tachypneic. Her heart rate resolved after several minutes of returning back to bed. She states she slept reasonably well last night. She did develop a rash yesterday. She was given her first dose of Septra and codeine for her cough. The rash was not temporally related to the Bactrim. Her mother apparently has a sulfa allergy. The rash resolved with Benadryl. Review of Systems Review of Systems: All systems reviewed & are unremarkable except as noted in HPI & below Physical Exam Constitutional: well developed; not ill appearing Neck: trachea midline, no thyromegaly Respiratory: + labored breathing Auscultation: + crackles and + wheezes Cardiovascular: RRR, no murmur, no edema Gastrointestinal (Abdomen): normal bowel sounds, soft, nontender, no hepatosplenomegaly Musculoskeletal: Extremities: extremities normal to inspection Skin: no rashes, warm and dry Lymphatic: no cervical lymphadenopathy Results & Data Results & [facility] ([facility]) Vital Signs (Past 12 Hours) Vital Signs Temp Pulse Resp BP Pulse Ox 09/05/20 09:39 95 09/05/20 09:22 37.1 C 95 H 12 115/74 98 09/05/20 03:25 37.1 C 101 H 17 104/73 95 09/04/20 23:34 37.2 C 72 18 112/72 98 Laboratory Results 09/05/20 07:32 09/05/20 07:32 Diagnostic Findings No new imaging PG Care Time/CCT Total # of Minutes Spent Total Time Spent with Patient: Total time spent is greater than 50% in coordination of care (as documented) at patient's floor/unit and/or counseling patient: Coding Level of Care Code 17414 Subseq Hosp Care Lvl 3 Diagnoses COVID-19 virus infection U07.1 Multiple sclerosis G35 Headache R51.9 DVT prophylaxis Z29.9 Time Spent (min) 35
[2020-09-05] MEDS ORDERED: diphenhydrAMINE 50 MG/ML VIAL IV STA (12:09)
--- NOTE | 2020-09-05 19:36 | Hospitalist Progress Note ---
Date of Service September 05, 2020 Assessment & Plan (1) Sepsis: (2) Multifocal pneumonia: (3) COVID-19 virus infection: Present on admission with fevers and worsening SOB Covid positive on 08/15, has completed 10-day course of steroids in outpatient setting followed and doxycycline for bilateral PNA on CXR 08/26, switched to azithromycin and cefdinir on 08/28, started on prednisone 20mg BID Returns to ED 08/31 after fever of 103.1 F with pulse ox ranging from 87-89% at home Meets sepsis criteria with tachycardia, tachypnea, leukocytosis (steroids likely contributing) and lactic acid of 2.3 Procalcitonin normal Chest CTA with extensive bilateral alveolar opacities have progressively worsened from 08/28/2020 compatible with multifocal pneumonia and small pleural effusions. No evidence of pulmonary embolism Pneumonia likely viral but concern for superimposed bacterial pna. Blood cx no growth Rocephin and Azithromycin discontinued and started on Bactrim Mon/Wed/Wed Pulm on board Received 2 days Remdesivir, then discontinue IV dexamethasone was discontinued on 09/04/20 and transition to Prednisone 40mg daily and continue until outpatient follow up with Pulm Continue encourage pt to prone Continue to wean oxygen Will consider a 2 step on discharge (4) Hypokalemia: Potassium 4.3 today On Potassium supplement 20mg TID Will consider to discontinue K if elevates Monitor BMP (5) Multiple sclerosis: Follows with [facility] neuro. Gets Ocrevus infusions q6M, due in October Continue to hold armodafinil DVT Ppx: SQ Lovenox 40 Q1 Code status: FULL Dispo: Will discharge once medical stable Admission and Anticipated Discharge Date Admission Date: August 31, 2020 Subjective Pt was seen and examined for follow up on respiratory distress Lying in bed with no distress Pt said that she feels better today She said that she continues to have difficulty to bring her phlegm She was just weaning from the oxygen and was saturated well on RA She said that she developed a rash not sure if it was related to the codeine or bactrim DS Denies any chest pain, palpitation, dizziness and SOB Physical Exam Physical Exam: General- No acute distress Head- atraumatic Eyes- PERRL, EOMI, ENT- oropharynx clear Neck- supple, no JVD Lungs- No wheezing, diminished BS Heart- regular rhythm; no murmur Abdomen- normal bowel sounds, soft, nontender Extremities- no calf tenderness Neuro- alert, oriented x 3; PERRL, EOMI; no facial palsy; no dysarthria Skin- warm & dry Results & Data Results & Data ([facility]) Vital Signs (Past 12 Hours) Vital Signs Temp Pulse Pulse Resp BP Pulse Ox 09/05/20 16:39 37.2 C 103 H 14 109/78 95 09/05/20 16:28 124 H 09/05/20 12:00 37.1 C 112 H 16 117/80 96 09/05/20 09:39 95 09/05/20 09:22 37.1 C 95 H 12 115/74 98 (1) Sepsis Sepsis acute organ dysfunction status: unspecified Sepsis type: sepsis due to unspecified organism Qualified Code(s): A41.9 - Sepsis, unspecified organism
[2020-09-06] MEDS: HYDROcodone/HOMATROPINE SYRUP 5MG/1.5MG 5ML UDP PO PRN ×2 (05:50→12:17)
[2020-09-06] MEDS: ENOXAPARIN INJ 40 MG/0.4 ML SYR SQ SCH (05:51)
[2020-09-06] MEDS: guaiFENesin/DEXTROM SYRUP 200MG/20MG 10ML UDC PO SCH ×2 (05:51→14:47)
[2020-09-06] MEDS: SULFAMETHOXAZOLE/TRIMETHOPRIM DS 800/160MG TAB PO SCH (08:22)
[2020-09-06] MEDS: ADVANCED PROBIOTIC 1250 MG CAPSULE PO SCH (08:22)
[2020-09-06] MEDS: CHOLECALCIFEROL 1,000 UNITS 25 MCG TAB PO SCH (08:22)
[2020-09-06] MEDS: predniSONE 20 MG TAB PO SCH (08:22)
[2020-09-06] MEDS: ASCORBIC ACID 500 MG TAB PO SCH (08:22)
[2020-09-06] MEDS: PANTOprazole 40 MG TAB PO SCH (08:23)
[2020-09-06] MEDS: DROSPIRENONE ETHINYL ESTRADIOL PO SCH (08:23)
[2020-09-06] MEDS: POTASSIUM CHLORIDE CRTAB 20 MEQ TABCR PO SCH (08:23)
--- NOTE | 2020-09-06 12:53 | Pulmonology Progress Note ---
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 Positive for Covid 08/15/2020. Received outpatient steroids and antibiotics. Worsening of s ymptoms resulted in admission 08/31/2020. Patient is currently being treated for potential organizing pneumonia and has had significant clinical and radiographic improvement with introduction of steroids. Recommendations: 1. COVID-19 infection: Clinically improved 2. Multifocal airspace opacity: Patient is empirically being treated for cryptogenic organizing pneumonia. Would continue prednisone at 40 mg a day until follow-up with pulmonary in about 3 weeks with a chest x-ray. She should continue Bactrim Wednesday and Wednesday for P FELA prophylaxis. I would be happy to see her back in pulmonary clinic. 3. Cough: Continue supportive care. This is secondary to the patient's underlying parenchymal process. Tussionex cough syrup appears to be effective. Can continue Tessalon as needed. 4. Hypoxemic respiratory failure: Secondary to underlying pulmonary process. She is now down to room air and doing well clinically Management of the patient's other medical issues is deferred to the patient's primary admitting service. Patient appears appropriate to discharge from a pulmonary perspective. She will self monitor her symptoms at home and notify us should she develop clinical worsening. We will sign off at this point time. Feel free to contact us if we can be of additional assistance (2) Multiple sclerosis: (3) Headache: (4) DVT prophylaxis: Admission and Anticipated Discharge Date Admission Date: August 31, 2020 Subjective Patient seen and examined. EMR reviewed. She feels much better this morning and clinically appears significantly improved for the first time. Her cough is less. Has been weaned down to room air. She is tolerating a diet. She ambulated with heart rates only increasing into the 120s or 130s. She overall feels markedly better. She took the Bactrim this morning with no adverse effect and is anxious to potentially go home Review of Systems Review of Systems: All systems reviewed & are unremarkable except as noted in HPI & below Physical Exam Constitutional: well developed; not ill appearing Neck: trachea midline, no thyromegaly Respiratory: normal respiratory effort; no respiratory distress and no labored breathing Auscultation: + crackles; no wheezes Cardiovascular: RRR, no murmur, no edema Gastrointestinal (Abdomen): normal bowel sounds, soft, nontender, no hepatosplenomegaly Musculoskeletal: Extremities: extremities normal to inspection Skin: no rashes, warm and dry Lymphatic: no cervical lymphadenopathy Results & Data Results & Data ([facility]) Vital Signs (Past 12 Hours) Vital Signs Temp Pulse Pulse Resp BP Pulse Ox 09/06/20 11:13 37.1 C 101 H 17 120/86 95 09/06/20 07:58 89 09/06/20 07:38 37.0 C 110 H 18 120/86 96 09/06/20 04:41 37.1 C 106 H 20 106/73 93 Laboratory Results 09/05/20 07:32 09/05/20 07:32 Diagnostic Findings No new imaging PG Care Time/CCT Total # of Minutes Spent Total Time Spent with Patient: Total time spent is greater than 50% in coordination of care (as documented) at patient's floor/unit and/or counseling patient: Coding Level of Care Code 28289 Subseq Hosp Care Lvl 2 Diagnoses COVID-19 virus infection U07.1 Multiple sclerosis G35 Headache R51.9 DVT prophylaxis Z29.9
--- NOTE | 2020-09-06 14:34 | Hospitalist Progress Note ---
Date of Service September 06, 2020 Assessment & Plan (1) Sepsis: (2) Multifocal pneumonia: (3) COVID-19 virus infection: Present on admission with fevers and worsening SOB Covid positive on 08/15, has completed 10-day course of steroids in outpatient setting followed and doxycycline for bilateral PNA on CXR 08/26, switched to azithromycin and cefdinir on 08/28, started on prednisone 20mg BID Returns to ED 08/31 after fever of 103.1 F with pulse ox ranging from 87-89% at home Meets sepsis criteria with tachycardia, tachypnea, leukocytosis (steroids likely contributing) and lactic acid of 2.3 Procalcitonin normal Chest CTA with extensive bilateral alveolar opacities have progressively worsened from 08/28/2020 compatible with multifocal pneumonia and small pleural effusions. No evidence of pulmonary embolism Pneumonia likely viral but concern for superimposed bacterial pna. Blood cx no growth Rocephin and Azithromycin discontinued and started on Bactrim Mon/Wed/Wed Pulm on board Received 2 days Remdesivir, then discontinue IV dexamethasone was discontinued on 09/04/20 and transition to Prednisone 40mg daily and continue until outpatient follow up with Pulm Continue encourage pt to prone Saturated welll on RA Will consider a 2 step on discharge Ok from Pulm standpoint to discharge home Will need a repeat CXR in 3 weeks Follow up with pulm in 3 to 4 weeks (4) Hypokalemia: Potassium 4.3 today On Potassium supplement 20mg TID Will consider to discontinue K if elevates Monitor BMP (5) Multiple sclerosis: Follows with [facility] neuro. Gets Ocrevus infusions q6M, due in October Continue to hold armodafinil DVT Ppx: SQ Lovenox 40 Q1 Code status: FULL Dispo: Discharge home today Follow up with Dr. Perez Admission and Anticipated Discharge Date Admission Date: August 31, 2020 Subjective Pt was seen and examined Sitting in bed with no distress Pt said that she feels much better She saturated well on RA She said that her cough improves Denies any chest pain, palpitation, dizziness and SOB Physical Exam Physical Exam: General- No acute distress Head- atraumatic Eyes- PERRL, EOMI, ENT- oropharynx clear Neck- supple, no JVD Lungs- No wheezing, diminished BS Heart- regular rhythm; no murmur Abdomen- normal bowel sounds, soft, nontender Extremities- no calf tenderness Neuro- alert, oriented x 3; PERRL, EOMI; no facial palsy; no dysarthria Skin- warm & dry Results & Data Results & Data ([facility]) Vital Signs (Past 12 Hours) Vital Signs Temp Pulse Pulse Resp BP Pulse Ox 09/06/20 11:13 37.1 C 101 H 17 120/86 95 09/06/20 07:58 89 09/06/20 07:38 37.0 C 110 H 18 120/86 96 09/06/20 04:41 37.1 C 106 H 20 106/73 93 (1) Sepsis Sepsis acute organ dysfunction status: unspecified Sepsis type: sepsis due to unspecified organism Qualified Code(s): A41.9 - Sepsis, unspecified organism
--- NOTE | 2020-09-09 09:07 | Discharge Summary ---
Date of Service September 06, 2020 Admission HPI Per Admitting Provider This is a 22-year-old female with history of multiple sclerosis and Covid who presents with continued fevers and shortness of breath. 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 Tested positive for Covid on 08/15 and began a 10-day course of steroids in outpatient setting. Continue to have fevers and chest tightness and was seen by PCP on 08/26 with chest x-ray showing bilateral pneumonia. Was started on doxycycline. Continue to feel poorly and was seen in the ED on 08/28 when her antibiotic regimen was switched to cefdinir and azithromycin and was started on prednisone 20 twice daily. Was told to return to the ED if her symptoms worsen. Early this morning, patient had a temp of 103.1 F with pulse ox ranging from 87 to 89%. Improved 90% after using Ventolin inhaler. Continues to feel short of breath with dry cough, occasional palpitations, fever and chills. Denies chest pain, nausea, vomiting, abdominal pain, dysuria or constipation. Has been having some diarrhea since starting antibiotics. Admission Exam Per Admitting Provider Physical Exam Gen-AAO x 3, NAD, febrile, Bronchospastic Head-NCAT, EOMI, PERRLA, Anicteric Sclera, No Posterior Pharyngeal Erythema Neck-Supple, No JVD, No Thyromegaly, No Masses, No LAD, No Bruits Lungs-Clear to Auscultation Bilaterally, No Rales, No Rhonchi, No Wheezing, No Crepitus Chest-No S4, +S1, +S2, No S3, No Murmurs, No Rubs, No Gallops, No Ectopy Abdomen-Soft, Bowel Sounds Present, Non Tender, Non Distended, No Hepatomegaly, No Splenomegaly, No Palpable Masses, No Rebound, No Rigidity, No Guarding Musculoskeletal-Full Range of Motion Bilaterally, No CVAT Extremities-No Cyanosis, No Clubbing, No Edema Nuero-Cranial Nerves II-XII grossly intact, Motor WNL, DTRs WNL, Strength WNL, Non Focal Psych-Normal Mood Principal Diagnosis Sepsis: Multifocal pneumonia: COVID-19 virus infection: Hypokalemia: Multiple sclerosis: Discharge Exam General- No acute distress Head- atraumatic Eyes- PERRL, EOMI, ENT- oropharynx clear Neck- supple, no JVD Lungs- No wheezing, diminished BS Heart- regular rhythm; no murmur Abdomen- normal bowel sounds, soft, nontender Extremities- no calf tenderness Neuro- alert, oriented x 3; PERRL, EOMI; no facial palsy; no dysarthria Skin- warm & dry Discharge Data Allergies Allergy/AdvReac Type Severity Reaction Status Date / Time glatiramer (copolymer 1) Allergy Severe Hives and Verified 08/31/20 09:21 [From Copaxone] shortness of breath Consultations 08/31/20 12:09 ED Decision to Admit Stat 08/31/20 14:22 Consult Pulmonology Routine 09/02/20 05:54 Consult Infectious Diseases Routine Ordered Studies 08/31/20 09:17 CT angio chest PE protocol Stat XR chest 1V portable CLINICAL HISTORY: Hypoxia, COVID + COMPARISON STUDY: Chest CT August 31, 2020. Chest radiograph September 03, 2020. FINDINGS: Small left pleural effusion is noted. There is no pneumothorax. Cardiomediastinal silhouette is normal. Extensive left lung consolidation is present. Left lung aeration has slightly improved. Multifocal right lung airspace opacities are similar to prior exam. IMPRESSION: 1. Slight improvement in extensive left lung consolidation. No change in multifocal right lung airspace opacities consistent with an infectious process. 2. Small left pleural effusion. ACT 112: Negative or not required by law. Electronically signed by: Chris Rojas M.D. 09/04/2020 10:29 AM Dictated: 09/04/20 1027Transcribed: 09/04/20 1027 XR chest 1V portable CLINICAL HISTORY: Hypoxia, COVID positive COMPARISON STUDY: 09/02/2020 FINDINGS: The cardiac and mediastinal contours remain stable. There are bilateral pulmonary airspace opacities, minimally improved when compared the prior study. The findings are consistent with a multifocal pneumonia.[Trace pleural effusions are suspected IMPRESSION: Multifocal pulmonary airspace opacities consistent with a multifocal pneumonia, slightly improved when compared with the preceding study ACT 112: Negative or not required by law. Electronically signed by: Sotero Martin M.D. 09/03/2020 8:56 AM Dictated: 09/03/20 0854Transcribed: 09/03/20 0854 XR chest 1V portable CLINICAL HISTORY: Worsening SOB COMPARISON STUDY: Chest radiograph and chest CT August 31, 2020. FINDINGS: There is no pneumothorax. There are small left and trace right pleural effusions. Extensive bilateral consolidation, greater within the left lung, has increased since prior exam of August 31, 2010. Cardiomediastinal silhouette is stable. IMPRESSION: 1. Reduction of extensive left lung consolidation and right lung multifocal air space opacities. The findings represent an infectious process. 2. Small left and trace right pleural effusions. ACT 112: Negative or not required by law. Electronically signed by: Chris Rojas M.D. 09/02/2020 7:37 AM Dictated: 09/02/2033Transcribed: 09/02/20732 XR chest 1V portable HISTORY: 30 years-old Female Dyspnea, + COVID acute shortness of breath. COVID Positive. COMPARISON: Chest radiograph 08/28/2020 TECHNIQUE: Portable AP view of the chest FINDINGS: Cardiac silhouette is normal in size. No pneumothorax. Progressively worsened bilateral airspace opacities. No pleural effusion. Bones appear grossly intact. IMPRESSION: Progressively worsened bilateral airspace opacities compatible with multifocal pneumonia. ACT 112: Negative or not required by law. The above report was generated using voice recognition software. It may contain grammatical, syntax or spelling errors. Electronically signed by: Chris Chahal M.D. 08/31/2020 10:31 AM Dictated: 08/31/20 1030Transcribed: 08/31/[address] angio chest PE protocol CT DOSE: 297.31 mGy.cm HISTORY: 30 years-old Female with Dyspnea, + covid, OCP. Acute shortness of breath. COVID Positive. TECHNIQUE: Multiple CTA images of the chest were obtained after the intravenous administration of 120 ml Optiray 320. Coronal and sagittal MIPS were obtained from the axial data set and were submitted for review. All measurements were obtained according to NASCET criteria. A dose lowering technique was utilized adhering to the principles of ALARA. COMPARISON: Chest radiograph of same day and also 08/28/2020 FINDINGS: CTA: The heart is normal in size without pericardial effusion. There is no thoracic aortic aneurysm or dissection. Patency of the imaged great vessels. The pulmonary arterial tree is opacified to the level of the subsegmental branches and demonstrates no filling defects to suggest thromboembolic disease. CT CHEST: Unremarkable thyroid. Mild residual thymic tissue of the anterior mediastinum. Prominent mediastinal and hilar lymph nodes measuring up to 8-9 mm are likely reactive. Small pleural effusions. No pneumothorax. Low and patchy multilobar distribution of bilateral airspace opacities are noted, progressively worsened from 08/29/2020. Intermixed groundglass densities of the lung bases. Central airways are patent. No acute process of the imaged upper abdomen. The breast parenchyma and soft tissues appear unremarkable. Bones appear intact. IMPRESSION: 1. No pulmonary emboli. 2. Extensive bilateral alveolar opacities have progressively worsened from 08/28/2020 compatible with multifocal pneumonia. 3. Small pleural effusions. ACT 112: Negative or not required by law. The above report was generated using voice recognition software. It may contain grammatical, syntax or spelling errors. Electronically signed by: Chris Chahal M.D. 08/31/2020 11:29 AM Dictated: 08/31/20 1123Transcribed: 08/31/20 1123 Hospital Course (1) Sepsis: (2) Multifocal pneumonia: (3) COVID-19 virus infection: Present on admission with fevers and worsening SOB Covid positive on 08/15, has completed 10-day course of steroids in outpatient setting followed and doxycycline for bilateral PNA on CXR 08/26, switched to azithromycin and cefdinir on 08/28, started on prednisone 20mg BID Returns to ED 08/31 after fever of 103.1 F with pulse ox ranging from 87-89% at home Meets sepsis criteria with tachycardia, tachypnea, leukocytosis (steroids likely contributing) and lactic acid of 2.3 Procalcitonin normal Chest CTA with extensive bilateral alveolar opacities have progressively worsened from 08/28/2020 compatible with multifocal pneumonia and small pleural effusions. No evidence of pulmonary embolism Pneumonia likely viral but concern for superimposed bacterial pna. Blood cx no growth Rocephin and Azithromycin discontinued and started on Bactrim Mon/Wed/Fri Pulm on board Received 2 days Remdesivir, then discontinue IV dexamethasone was discontinued on 09/04/20 and transition to Prednisone 40mg daily and continue until outpatient follow up with Pulm Continue encourage pt to prone Saturated welll on RA Will consider a 2 step on discharge Ok from Pulm standpoint to discharge home Will need a repeat CXR in 3 weeks Follow up with pulm in 3 to 4 weeks (4) Hypokalemia: Potassium 4.3 today On Potassium supplement 20mg TID Will consider to discontinue K if elevates Monitor BMP (5) Multiple sclerosis: Follows with [facility]. Gets Ocrevus infusions q6M, due in October Continue to hold armodafinil DVT Ppx: SQ Lovenox 40 Q1 Code status: FULL Dispo: Discharge home today Follow up with Dr. Perez Total Time Total Time Spent Total Time Spent (In Minutes): 35 minutes Total Time Includes: Examination of the Patient, Discharge Planning, Medication Reconciliation, Communication With Other Providers and Other Discharge Plan Discharge Items Patient Disposition: Home - Self-Care Reason For Visit: COVID PNEUMONIA Discharge Diagnosis: Sepsis: Multifocal pneumonia: COVID-19 virus infection: Hypokalemia: Multiple sclerosis: Activity: Resume your previous activity Non-emergency contact: Primary Care Provider and Commercial [employer] Paralegal Call non-emergency contact if: you have any medication questions, your symptoms worsen and your temperature is above 101 Follow-up/Referrals: Georgina Perez DO [Primary Care Provider] - (Date & Time 09/10/2020 11:00 AM Provider Georgina Perez DO Department [facility] PLEASE NOTE THAT THIS IS A TELEVIDEO APPOINTMENT. PLEASE FOLLOW THE INSTRUCTIONS PROVIDED IN AN EMAIL YOU WILL RECEIVE. IF YOU HAVE ANY QUESTIONS, PLEASE CALL ) Diet: Regular Addtl Attending Provider Instructions: Follow up with your primary care provider Dr. Perez on 09/10/2020 at 11:00 AM Follow up with pulmonology in 2 to 3 weeks (Please call for the follow up appointment) You will need a repeat chest XRay in 2-3 weeks for follow up (Your provider or your pulmonology will order it) Continue prednisone 40mg daily until your next appointment with pulmonology Please continue to hold the Armodafinil for now (Please ask your provider when to resume it) Continue Bactrim DS on Wednesday, Wednesday, Wednesday Increase potassium supplement in your diet Continue self monitor your symptoms at home and notify your physician or seek medical attention if your symptoms worsening. Please do not drive or operate any machine after taking the Hycodan due to risk of lethargy and drowsiness COVID-19 Instructions The following information about Home Isolation is from the CDC Website: https://www.cdc.gov/coronavirus/2019-ncov/hcp/hlspkicr-sgtcsig-dvfccb.html Stay home except to get medical care People who are mildly ill with COVID-19 are able to isolate at home during their illness. You should restrict activities outside your home, except for getting medical care. Do not go to work, school, or public areas. Avoid using public transportation, ride-sharing, or taxis. Separate yourself from other people and animals in your home People: As much as possible, you should stay in a specific room and away from other people in your home. Also, you should use a separate bathroom, if available. Animals: You should restrict contact with pets and other animals while you are sick with COVID-19, just like you would around other people. Although there have not been reports of pets or other animals becoming sick with COVID-19, it is still recommended that people sick with COVID-19 limit contact with animals until more information is known about the virus. When possible, have another member of your household care for your animals while you are sick. If you are sick with COVID-19, avoid contact with your pet, including petting, snuggling, being kissed or licked, and sharing food. If you must care for your pet or be around animals while you are sick, wash your hands before and after you interact with pets and wear a face mask. Call ahead before visiting your doctor If you have a medical appointment, call the healthcare provider and tell them that you have or may have COVID-19. This will help the healthcare providers office take steps to keep other people from getting infected or exposed. Wear a face mask You should wear a face mask when you are around other people (e.g., sharing a room or vehicle) or pets and before you enter a healthcare providers office. If you are not able to wear a face mask (for example, because it causes trouble breathing), then people who live with you should not stay in the same room with you, or they should wear a face mask if they enter your room. Cover your coughs and sneezes Cover your mouth and nose with a tissue when you cough or sneeze. Throw used tissues in a lined trash can. Immediately wash your hands with soap and water for at least 20 seconds or, if soap and water are not available, clean your hands with an alcohol-based hand route jumper that contains at least 60% alcohol. Clean your hands often Wash your hands often with soap and water for at least 20 seconds, especially after blowing your nose, coughing, or sneezing; going to the bathroom; and before eating or preparing food. If soap and water are not readily available, use an alcohol-based hand route jumper with at least 60% alcohol, covering all surfaces of your hands and rubbing them together until they feel dry. Soap and water are the best option if hands are visibly dirty. Avoid touching your eyes, nose, and mouth with unwashed hands. Avoid sharing personal household items You should not share dishes, drinking glasses, cups, eating utensils, towels, or bedding with other people or pets in your home. After using these items, they should be washed thoroughly with soap and water. Clean all high-touch surfaces everyday High touch surfaces include counters, tabletops, doorknobs, bathroom fixtures, toilets, phones, keyboards, tablets, and bedside tables. Also, clean any surfaces that may have blood, stool, or body fluids on them. Use a household cleaning spray or wipe, according to the label instructions. Labels contain instructions for safe and effective use of the cleaning product including precautions you should take when applying the product, such as wearing gloves and making sure you have good ventilation during use of the product. Monitor your symptoms Seek prompt medical attention if your illness is worsening (e.g., difficulty breathing).Beforeseeking care, call your healthcare provider and tell them that you have, or are being evaluated for, COVID-19. Put on a face mask before you enter the facility. These steps will help the healthcare providers office to keep other people in the office or waiting room from getting infected or exposed. Ask your healthcare provider to call the local or state health department. Persons who are placed under active monitoring or facilitated self- monitoring should follow instructions provided by their local health department or occupational health professionals, as appropriate. When working with your local health department check their available hours. If you have a medical emergency and need to call 911, notify the dispatch personnel that you have, or are being evaluated for COVID-19. If possible, put on a face mask before emergency medical services arrive. Pending Studies at Discharge: No Stand-Alone Forms: My [facility], Work/School Release (Inpt), Smoking Cessation Medications and DC Order Prescriptions: New sulfamethoxazole-trimethoprim 800-160 mg Tablet 1 tab PO MoWeFr@0900 Qty: 15 RF: 0 hydrocodone-homatropine [Hydromet] 5-1.5 mg/5 mL Syrup 5 ml PO Q6H PRN (Reason: cough) Qty: 473 RF: 0 prednisone 20 mg tablet 40 mg PO DAILY Qty: 30 RF: 0 Continued ocrelizumab 30 mg/mL solution 600 mg IV .COMPLEX 360 Days Qty: 2 RF: 1 armodafinil 200 mg tablet 200 mg PO DAILY 30 Days Qty: 30 RF: 4 cholecalciferol (vitamin D3) 5,000 unit tablet 5,000 units PO DAILY RF: 0 benzonatate 100 mg capsule 100 mg PO TID PRN (Reason: Cough) RF: 0 drospirenone-ethinyl estradiol 3-0.03 mg tablet 1 tab PO DAILY RF: 0 azithromycin [Zithromax Z-Lm] 250 mg tablet See Rx Instructions .ROUTE .COMPLEX Qty: 6 RF: 0 albuterol sulfate [Proventil HFA] 90 mcg/actuation HFA aerosol inhaler 2 inh inhalation Q6H Qty: 18 RF: 0 zinc acetate 50 mg (zinc) Capsule 50 mg PO DAILY RF: 0 ascorbic acid (vitamin C) 500 mg Tablet 500 mg PO DAILY RF: 0 Discontinued prednisone 20 mg tablet 20 mg PO BID Qty: 10 RF: 0 cefdinir 300 mg capsule 300 mg PO BID 7 Days Qty: 20 RF: 0 Discharge Orders: Discharge Order (Routine); Ordered 09/06/20 Ordered By: Malachi Alfredo Admission Data Admit Date/Time: 08/31/20 12:36 Attending Provider: Malachi Alfredo Admit Provider: Kev Mandujano Primary Care Provider: Georgina Perez Other Providers: Kev Mandujano ; Bertin Stovall ; Kvng Flores ; Alley Prakash ; Domingo Lay I. ; Jaylon Mary II ; Maureen Baker ; Erick Nava Other Interventions: Discharge Summary Assessment (RN) Last Done: 09/06/20 15:10
== END 2020-09-06 16:01 | disposition home or self-care (01) | DRG 871 ==
LOC: ED 08:59 → 2S 12:36 → SUATTDRO 12:36 → 2S 13:59